=== PATIENT | female | born 1960 | race Caucasian/White ===

== ENCOUNTER 2016-10-17 18:38 | Emergency (ER) | payer OTHER ==
[~2016-10-17] VITALS: Ht 208.3 cm; Wt 88.0 kg
[~2016-10-17 18:38] MED LIST: ACETAMINOPHEN325 M1 PO; ALBUTEROL SULF8.5 GM INH; BENADRYL25 MG PO; BUTALB-ACETAMI1 EACH PO; BUTALBITAL-ASA1 EAC1 PO; CYCLOBENZAPRINE10 MG PO; DICLOFENAC POTA50 MG PO; EPIPEN 2-P0.3 MG/0.3 IM; GABAPENTIN300 MG PO; IBUPROFEN600 MG PO; INDERAL LA160 MG PO; IRON325 MG PO; LISINOPRIL20 MG PO; LOSARTAN POTASS25 MG PO; NORCO 5-325 TA1 EACH PO; PEPCID20 MG PO; PREDNISONE20 MG PO; PROPRANOLOL HCL40 MG PO; SOMA350 MG PO; SYNTHROID50 MCG PO; TRAZODONE HCL100 MG PO; VITAMIN D5000 UNIT PO
[2016-11-11] MEDS ORDERED: DICLOFENAC SODI75 MG PO (00:03)
== END 2016-10-17 20:08 | disposition home or self-care (01) ==
LOC: ED 18:38
DX: E87.1 Hypo-osmolality and hyponatremia (principal); I10 Essential (primary) hypertension; E03.9 Hypothyroidism, unspecified; F17.200 Nicotine dependence, unspecified, uncomplicated; Z90.49 Acquired absence of other specified parts of digestive tract; Z90.710 Acquired absence of both cervix and uterus; Z79.899 Other long term (current) drug therapy; Z88.5 Allergy status to narcotic agent; Z88.8 Allergy status to other drugs, medicaments and biological substances
CPT/HCPCS: 82570; 84300; 99283

== ENCOUNTER → 2016-11-10 | Emergency (ER) | payer OTHER ==
[~2016-11-10] VITALS: Ht 165.1 cm; Wt 101.2 kg
[~2016-11-10] MED LIST changes: +CARVEDILOL12.5 MG PO; +DICLOFENAC SODI75 MG PO; +FERROUS SULFAT325 MG PO; +SPIRONOLACTONE25 MG PO
== END ==
LOC: ED 22:54
DX: S90.31XA Contusion of right foot, initial encounter (principal); I10 Essential (primary) hypertension; E03.9 Hypothyroidism, unspecified; F17.200 Nicotine dependence, unspecified, uncomplicated; Z90.49 Acquired absence of other specified parts of digestive tract; Z98.84 Bariatric surgery status; Z90.710 Acquired absence of both cervix and uterus; Z88.6 Allergy status to analgesic agent; Z88.5 Allergy status to narcotic agent; Z79.899 Other long term (current) drug therapy; W22.8XXA Striking against or struck by other objects, initial encounter
CPT/HCPCS: 73630; 99283

== ENCOUNTER 2017-02-14 22:02 | Emergency (ER) | payer OTHER ==
[~2017-02-14] VITALS: Ht 157.5 cm; Wt 106.1 kg
--- OUTSIDE RECORDS SUMMARY | ~2017-02-14 | XMS ---
Demographics + + + | Address | [address] | | | [address] | | | [place] [address] | + + + | Preferred Language | Unknown | + + + | Marital Status | Unknown | + + + | Taoist Affiliation | Unknown | + + + | Race | Unknown | + + + | Ethnic Group | Unknown | + + + Author + + + | Author | [facility] | + + + | Organization | [facility] | + + + | Address | [address] | | | [place] [address] | + + + | Phone | | + + + Care Team Providers + + + + | Care Life Underwriter Name | Role | Phone | + + + + Unavailable | Unavailable | + + + + PROBLEMS +---------+ + + +--------+ + + | Type | Condition | ICD9-CM | [id number] | Onset | Condition | SNOMED | | | | Code | Code | Dates | Status | Code | +---------+ + + +--------+ + + | Problem | Hypoglycem | E16.1 | | | Active | 218726 | | | ic | | | | | | | | reaction | | | | | | +---------+ + + +--------+ + + | Problem | Pain in | | M54.6 | | Active | 749786426 | | | thoracic | | | | | | | | spine | | | | | | +---------+ + + +--------+ + + | Problem | Low back | | M54.5 | | Active | 569589192 | | | pain | | | | | | +---------+ + + +--------+ + + | Problem | Hypoglycem | E16.2 | | | Active | 018017006 | | | ia | | | | | | +---------+ + + +--------+ + + | Problem | Low sodium | | E87.1 | | Active | 346713811 | | | levels | | | | | | +---------+ + + +--------+ + + | Problem | Left wrist | S69.92XA | | | Active | | | | injury | | | | | | +---------+ + + +--------+ + + | Problem | Contusion | | S90.32XD | | Active | 6977901570 | | | of left | | | | | 9164955 | | | foot, | | | | | | | | subsequent | | | | | | | | encounter | | | | | | +---------+ + + +--------+ + + | Problem | Left wrist | | M25.532 | | Active | 24564660 | | | pain | | | | | | +---------+ + + +--------+ + + | Problem | Carpal | | G56.02 | | Active | 8411739268 | | | tunnel | | | | | [address] | | | syndrome | | | | | | | | of left | | | | | | | | wrist | | | | | | +---------+ + + +--------+ + + | Problem | Lumbago | | M54.5 | | Active | 319342899 | +---------+ + + +--------+ + + | Problem | Insomnia | | G47.00 | | Active | 518502473 | +---------+ + + +--------+ + + | Problem | Migraines | | G43.909 | | Active | 50715122 | +---------+ + + +--------+ + + | Problem | Hypothyroi | | E03.9 | | Active | 02001164 | | | dism | | | | | | +---------+ + + +--------+ + + | Problem | Hypertensi | | I10 | | Active | 14715371 | | | on | | | | | | +---------+ + + +--------+ + + | Problem | H/O | Z87.898 | | | Active | | | | wheezing | | | | | | +---------+ + + +--------+ + + | Problem | Hyperchole | | E78.0 | | Active | 590962838 | | | steremia | | | | | | +---------+ + + +--------+ + + ALLERGIES Unknown Allergies SOCIAL HISTORY No smoking Hx information available PLAN OF CARE VITAL SIGNS MEDICATIONS Unknown Medications RESULTS No Results PROCEDURES No Known procedures IMMUNIZATIONS No Known Immunizations"
--- OUTSIDE RECORDS SUMMARY | ~2017-02-14 | XMS ---
Demographics + + + | Address | [address] | | | [address] | | | [place] [address] | + + + | Preferred Language | Unknown | + + + | Marital Status | Unknown | + + + | Jewish Affiliation | Unknown | + + + | Race | Unknown | + + + | Ethnic Group | Unknown | + + + Author + + + | Author | [facility] | + + + | Organization | [facility] | + + + | Address | [address] | | | [place] [address] | + + + | Phone | | + + + Care Team Providers + + + + | Care Clinical Recruiter Name | Role | Phone | + + + + Unavailable | Unavailable | + + + + PROBLEMS +---------+ + + +--------+ + + | Type | Condition | ICD9-CM | [id number] | Onset | Condition | SNOMED | | | | Code | Code | Dates | Status | Code | +---------+ + + +--------+ + + | Problem | Hypoglycem | E16.1 | | | Active | 896410 | | | ic | | | | | | | | reaction | | | | | | +---------+ + + +--------+ + + | Problem | Pain in | | M54.6 | | Active | 161550983 | | | thoracic | | | | | | | | spine | | | | | | +---------+ + + +--------+ + + | Problem | Low back | | M54.5 | | Active | 568386027 | | | pain | | | | | | +---------+ + + +--------+ + + | Problem | Hypoglycem | E16.2 | | | Active | 682182664 | | | ia | | | | | | +---------+ + + +--------+ + + | Problem | Low sodium | | E87.1 | | Active | 482280187 | | | levels | | | | | | +---------+ + + +--------+ + + | Problem | Left wrist | S69.92XA | | | Active | | | | injury | | | | | | +---------+ + + +--------+ + + | Problem | Contusion | | S90.32XD | | Active | 7301950697 | | | of left | | | | | 5470363 | | | foot, | | | | | | | | subsequent | | | | | | | | encounter | | | | | | +---------+ + + +--------+ + + | Problem | Left wrist | | M25.532 | | Active | 04333295 | | | pain | | | | | | +---------+ + + +--------+ + + | Problem | Carpal | | G56.02 | | Active | 3629377320 | | | tunnel | | | | | [address] | | | syndrome | | | | | | | | of left | | | | | | | | wrist | | | | | | +---------+ + + +--------+ + + | Problem | Lumbago | | M54.5 | | Active | 645723472 | +---------+ + + +--------+ + + | Problem | Insomnia | | G47.00 | | Active | 281265250 | +---------+ + + +--------+ + + | Problem | Migraines | | G43.909 | | Active | 36278080 | +---------+ + + +--------+ + + | Problem | Hypothyroi | | E03.9 | | Active | 38931567 | | | dism | | | | | | +---------+ + + +--------+ + + | Problem | Hypertensi | | I10 | | Active | 49247015 | | | on | | | | | | +---------+ + + +--------+ + + | Problem | H/O | Z87.898 | | | Active | | | | wheezing | | | | | | +---------+ + + +--------+ + + | Problem | Hyperchole | | E78.0 | | Active | 000870267 | | | steremia | | | | | | +---------+ + + +--------+ + + ALLERGIES Unknown Allergies SOCIAL HISTORY No smoking Hx information available PLAN OF CARE VITAL SIGNS MEDICATIONS Unknown Medications RESULTS No Results PROCEDURES No Known procedures IMMUNIZATIONS No Known Immunizations"
--- OUTSIDE RECORDS SUMMARY | ~2017-02-14 | XMS ---
Demographics + + + | Address | [address] | | | [place] [address] | + + + | Preferred Language | Unknown | + + + | Marital Status | Unknown | + + + | Baptism Affiliation | Unknown | + + + | Race | Unknown | + + + | Ethnic Group | Unknown | + + + Author + + + | Author | [facility] | + + + | Organization | [facility] | + + + | Address | [address] | | | [place] [address] | + + + | Phone | | + + + Care Team Providers + + + + | Care Cannon Crewmember Name | Role | Phone | + + + + Unavailable | Unavailable | + + + + PROBLEMS +---------+ + + +--------+ + + | Type | Condition | ICD9-CM | [id number] | Onset | Condition | SNOMED | | | | Code | Code | Dates | Status | Code | +---------+ + + +--------+ + + | Problem | Anemia | | D64.9 | | Active | 968996343 | +---------+ + + +--------+ + + | Problem | Hypothyroi | | E03.9 | | Active | 44458901 | | | dism | | | | | | +---------+ + + +--------+ + + | Problem | Lumbago | | M54.5 | | Active | 849052081 | +---------+ + + +--------+ + + | Problem | Hyponatrem | | E87.1 | | Active | 78343051 | | | ia | | | | | | +---------+ + + +--------+ + + | Problem | Hyperchole | | E78.0 | | Active | 148266131 | | | steremia | | | | | | +---------+ + + +--------+ + + | Problem | Insomnia | | G47.00 | | Active | 541236854 | +---------+ + + +--------+ + + | Problem | H/O | Z87.898 | | | Active | | | | wheezing | | | | | | +---------+ + + +--------+ + + | Problem | Hypertensi | | I10 | | Active | 66862991 | | | on | | | | | | +---------+ + + +--------+ + + | Problem | Migraines | | G43.909 | | Active | 48340938 | +---------+ + + +--------+ + + ALLERGIES Unknown Allergies SOCIAL HISTORY No smoking Hx information available PLAN OF CARE VITAL SIGNS MEDICATIONS Unknown Medications RESULTS No Results PROCEDURES No Known procedures IMMUNIZATIONS No Known Immunizations"
--- OUTSIDE RECORDS SUMMARY | ~2017-02-14 | XMS ---
Demographics + + + | Address | [address] | | | [place] [address] | + + + | Preferred Language | Unknown | + + + | Marital Status | Unknown | + + + | Mormonism Affiliation | Unknown | + + + | Race | Unknown | + + + | Ethnic Group | Unknown | + + + Author + + + | Author | [facility] | + + + | Organization | [facility] | + + + | Address | [address] | | | [place] [address] | + + + | Phone | | + + + Care Team Providers + + + + | Care Water Softener Installer Name | Role | Phone | + + + + Unavailable | Unavailable | + + + + PROBLEMS +---------+ + + +--------+ + + | Type | Condition | ICD9-CM | [id number] | Onset | Condition | SNOMED | | | | Code | Code | Dates | Status | Code | +---------+ + + +--------+ + + | Problem | Anemia | | D64.9 | | Active | 613497780 | +---------+ + + +--------+ + + | Problem | Hypothyroi | | E03.9 | | Active | 89634225 | | | dism | | | | | | +---------+ + + +--------+ + + | Problem | Lumbago | | M54.5 | | Active | 926345461 | +---------+ + + +--------+ + + | Problem | Hyponatrem | | E87.1 | | Active | 00009627 | | | ia | | | | | | +---------+ + + +--------+ + + | Problem | Hyperchole | | E78.0 | | Active | 687996794 | | | steremia | | | | | | +---------+ + + +--------+ + + | Problem | Insomnia | | G47.00 | | Active | 300462652 | +---------+ + + +--------+ + + | Problem | H/O | Z87.898 | | | Active | | | | wheezing | | | | | | +---------+ + + +--------+ + + | Problem | Hypertensi | | I10 | | Active | 31240171 | | | on | | | | | | +---------+ + + +--------+ + + | Problem | Migraines | | G43.909 | | Active | 36861360 | +---------+ + + +--------+ + + ALLERGIES No Information SOCIAL HISTORY Never Assessed PLAN OF CARE VITAL SIGNS MEDICATIONS Unknown Medications RESULTS No Results PROCEDURES No Known procedures IMMUNIZATIONS No Known Immunizations MEDICAL (GENERAL) HISTORY + + +---------+ | Type | Description | Date | + + +---------+ | Medical History | HTN | | + + +---------+ | Medical History | THYROID | | + + +---------+ | Medical History | SLEEP ISSUES | | + + +---------+ | Medical History | RA | | + + +---------+ | Medical History | MIGRAINES | | + + +---------+ | Medical History | VITAMIN D DEFICIENCY | | + + +---------+ | 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 | | + + +---------+ | Medical History | Allergic reaction to bee | | | | sting | | + + +---------+ | Medical History | Tailor's bunion of right | | | | foot | | + + +---------+ | Medical History | History of smoking | | + + +---------+ | Medical History | Cataract | | + + +---------+ | Medical History | Numbness | | + + +---------+ | Medical History | Carpal tunnel syndrome of | | | | left wrist | | + + +---------+ | Medical History | Contusion of left foot, | | | | subsequent encounter | | + + +---------+ | Medical History | Hypoglycemic reaction | | + + +---------+ | Medical History | Left wrist injury | | + + +---------+ | Medical History | Pain in thoracic spine | | + + +---------+ | Medical History | Headache | | + + +---------+ | Medical History | Low back pain | | + + +---------+ | Medical History | Left wrist pain | | + + +---------+ | Medical History | Hypoglycemia | | + + +---------+ | Surgical History | C-SECT X3 | | + + +---------+ | Surgical History | HERNIA | | + + +---------+ | Surgical History | PARTIAL HYSTERECTOMY | | + + +---------+ | Surgical History | R shoulder blade | | + + +---------+ | 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
--- OUTSIDE RECORDS SUMMARY | ~2017-02-14 | XMS ---
Demographics + + + | Address | [address] | | | [address] | | | [place] [address] | + + + | Preferred Language | Unknown | + + + | Marital Status | Unknown | + + + | Buddhist Affiliation | Unknown | + + + | Race | Unknown | + + + | Ethnic Group | Unknown | + + + Author + + + | Author | [facility] | + + + | Organization | [facility] | + + + | Address | [address] | | | [place] [address] | + + + | Phone | | + + + Care Team Providers + + + + | Care Skin Washer Name | Role | Phone | + + + + Unavailable | Unavailable | + + + + PROBLEMS +---------+ + + +--------+ + + | Type | Condition | ICD9-CM | [id number] | Onset | Condition | SNOMED | | | | Code | Code | Dates | Status | Code | +---------+ + + +--------+ + + | Problem | Hypoglycem | E16.1 | | | Active | 626073 | | | ic | | | | | | | | reaction | | | | | | +---------+ + + +--------+ + + | Problem | Pain in | | M54.6 | | Active | 647854184 | | | thoracic | | | | | | | | spine | | | | | | +---------+ + + +--------+ + + | Problem | Low back | | M54.5 | | Active | 779011180 | | | pain | | | | | | +---------+ + + +--------+ + + | Problem | Hypoglycem | E16.2 | | | Active | 368772431 | | | ia | | | | | | +---------+ + + +--------+ + + | Problem | Low sodium | | E87.1 | | Active | 505167690 | | | levels | | | | | | +---------+ + + +--------+ + + | Problem | Left wrist | S69.92XA | | | Active | | | | injury | | | | | | +---------+ + + +--------+ + + | Problem | Contusion | | S90.32XD | | Active | 4868890941 | | | of left | | | | | 0042533 | | | foot, | | | | | | | | subsequent | | | | | | | | encounter | | | | | | +---------+ + + +--------+ + + | Problem | Left wrist | | M25.532 | | Active | 68222370 | | | pain | | | | | | +---------+ + + +--------+ + + | Problem | Carpal | | G56.02 | | Active | 3357651716 | | | tunnel | | | | | [address] | | | syndrome | | | | | | | | of left | | | | | | | | wrist | | | | | | +---------+ + + +--------+ + + | Problem | Lumbago | | M54.5 | | Active | 548950764 | +---------+ + + +--------+ + + | Problem | Insomnia | | G47.00 | | Active | 735810885 | +---------+ + + +--------+ + + | Problem | Migraines | | G43.909 | | Active | 86336888 | +---------+ + + +--------+ + + | Problem | Hypothyroi | | E03.9 | | Active | 90803888 | | | dism | | | | | | +---------+ + + +--------+ + + | Problem | Hypertensi | | I10 | | Active | 09181184 | | | on | | | | | | +---------+ + + +--------+ + + | Problem | H/O | Z87.898 | | | Active | | | | wheezing | | | | | | +---------+ + + +--------+ + + | Problem | Hyperchole | | E78.0 | | Active | 473286939 | | | steremia | | | | | | +---------+ + + +--------+ + + ALLERGIES Unknown Allergies SOCIAL HISTORY No smoking Hx information available PLAN OF CARE VITAL SIGNS MEDICATIONS Unknown Medications RESULTS No Results PROCEDURES No Known procedures IMMUNIZATIONS No Known Immunizations"
--- OUTSIDE RECORDS SUMMARY | ~2017-02-14 | XMS ---
Demographics + + + | Address | [address] | | | [address] | | | [place] [address] | + + + | Preferred Language | Unknown | + + + | Marital Status | Unknown | + + + | Advent Affiliation | Unknown | + + + | Race | Unknown | + + + | Ethnic Group | Unknown | + + + Author + + + | Author | [facility] | + + + | Organization | [facility] | + + + | Address | [address] | | | [place] [address] | + + + | Phone | | + + + Care Team Providers + + + + | Care Fuel Cell Systems Engineer Name | Role | Phone | + + + + Unavailable | Unavailable | + + + + PROBLEMS +---------+ + + +--------+ + + | Type | Condition | ICD9-CM | [id number] | Onset | Condition | SNOMED | | | | Code | Code | Dates | Status | Code | +---------+ + + +--------+ + + | Problem | Hypoglycem | E16.1 | | | Active | 333522 | | | ic | | | | | | | | reaction | | | | | | +---------+ + + +--------+ + + | Problem | Pain in | | M54.6 | | Active | 488053438 | | | thoracic | | | | | | | | spine | | | | | | +---------+ + + +--------+ + + | Problem | Low back | | M54.5 | | Active | 413994461 | | | pain | | | | | | +---------+ + + +--------+ + + | Problem | Hypoglycem | E16.2 | | | Active | 391404798 | | | ia | | | | | | +---------+ + + +--------+ + + | Problem | Low sodium | | E87.1 | | Active | 810672882 | | | levels | | | | | | +---------+ + + +--------+ + + | Problem | Left wrist | S69.92XA | | | Active | | | | injury | | | | | | +---------+ + + +--------+ + + | Problem | Contusion | | S90.32XD | | Active | 2311338956 | | | of left | | | | | 9624515 | | | foot, | | | | | | | | subsequent | | | | | | | | encounter | | | | | | +---------+ + + +--------+ + + | Problem | Left wrist | | M25.532 | | Active | 51390157 | | | pain | | | | | | +---------+ + + +--------+ + + | Problem | Carpal | | G56.02 | | Active | 0892218608 | | | tunnel | | | | | [address] | | | syndrome | | | | | | | | of left | | | | | | | | wrist | | | | | | +---------+ + + +--------+ + + | Problem | Lumbago | | M54.5 | | Active | 978601754 | +---------+ + + +--------+ + + | Problem | Insomnia | | G47.00 | | Active | 579084128 | +---------+ + + +--------+ + + | Problem | Migraines | | G43.909 | | Active | 02727874 | +---------+ + + +--------+ + + | Problem | Hypothyroi | | E03.9 | | Active | 14946117 | | | dism | | | | | | +---------+ + + +--------+ + + | Problem | Hypertensi | | I10 | | Active | 19855334 | | | on | | | | | | +---------+ + + +--------+ + + | Problem | H/O | Z87.898 | | | Active | | | | wheezing | | | | | | +---------+ + + +--------+ + + | Problem | Hyperchole | | E78.0 | | Active | 179062975 | | | steremia | | | | | | +---------+ + + +--------+ + + ALLERGIES Unknown Allergies SOCIAL HISTORY No smoking Hx information available PLAN OF CARE + +---------+ | Activity | Details | + +---------+ +---+ | | +---+ + + + | Pending Test | TSH | + + + | Pending Test | Basic Metabolic Panel | + + + VITAL SIGNS MEDICATIONS Unknown Medications RESULTS No Results PROCEDURES No Known procedures IMMUNIZATIONS No Known Immunizations"
--- OUTSIDE RECORDS SUMMARY | ~2017-02-14 | XMS ---
Demographics + + + | Address | [address] | | | [address] | | | [place] [address] | + + + | Preferred Language | Unknown | + + + | Marital Status | Unknown | + + + | Pentecostalism Affiliation | Unknown | + + + | Race | Unknown | + + + | Ethnic Group | Unknown | + + + Author + + + | Author | [facility] | + + + | Organization | [facility] | + + + | Address | [address] | | | [place] [address] | + + + | Phone | | + + + Care Team Providers + + + + | Care Plug Shaper Hand Name | Role | Phone | + + + + Unavailable | Unavailable | + + + + PROBLEMS +---------+ + + +--------+ + + | Type | Condition | ICD9-CM | [id number] | Onset | Condition | SNOMED | | | | Code | Code | Dates | Status | Code | +---------+ + + +--------+ + + | Problem | Low back | | M54.5 | | Active | 394832004 | | | pain | | | | | | +---------+ + + +--------+ + + | Problem | Contusion | | S90.32XD | | Active | 3846397430 | | | of left | | | | | 6450924 | | | foot, | | | | | | | | subsequent | | | | | | | | encounter | | | | | | +---------+ + + +--------+ + + | Problem | Pain in | | M54.6 | | Active | 872206414 | | | thoracic | | | | | | | | spine | | | | | | +---------+ + + +--------+ + + | Problem | Hyponatrem | | E87.1 | | Active | 69764659 | | | ia | | | | | | +---------+ + + +--------+ + + | Problem | Hypoglycem | E16.2 | | | Active | 461434496 | | | ia | | | | | | +---------+ + + +--------+ + + | Problem | Carpal | | G56.02 | | Active | 7207565668 | | | tunnel | | | | | [address] | | | syndrome | | | [...] | | E87.1 | | Active | 923203256 | | | levels | | | | | | +---------+ + + +--------+ + + | Problem | Left wrist | | M25.532 | | Active | 84642024 | | | pain | | | | | | +---------+ + + +--------+ + + | Problem | Lumbago | | M54.5 | | Active | 045690367 | +---------+ + + +--------+ + + | Problem | Hypothyroi | | E03.9 | | Active | 02467566 | | | dism | | | | | | +---------+ + + +--------+ + + | Problem | Migraines | | G43.909 | | Active | 72635937 | +---------+ + + +--------+ + + | Problem | Hypertensi | | I10 | | Active | 47310345 | | | on | | | | | | +---------+ + + +--------+ + + | Problem | H/O | Z87.898 | | | Active | | | | wheezing | | | | | | +---------+ + + +--------+ + + | Problem | Hyperchole | | E78.0 | | Active | 662447173 | | | steremia | | | | | | +---------+ + + +--------+ + + | Problem | Insomnia | | G47.00 | | Active | 706085557 | +---------+ + + +--------+ + + | Problem | Hypoglycem | E16.1 | | | Active | 703379 | | | ic | | | | | | | | reaction | | | | | | +---------+ + + +--------+ + + ALLERGIES + + + + +--------+ | Substance | Reaction | Event Type | Date | Status | + + + + +--------+ | Toradol | drops blood | Non Drug | Aug, | Active | | | sugar | Allergy | | | + + + + +--------+ | CODEINE | back pain | Non Drug | Aug, | Active | | | | Allergy | | | + + + + +--------+ | ASPIRIN | anaphylaxis | Non Drug | Aug, | Active | | | | Allergy | | | + + + + +--------+ SOCIAL HISTORY No smoking Hx information available PLAN OF CARE + +---------+ | Activity | Details | + +---------+ +---+ | | +---+ + + + | Follow Up | as scheduled with PCP and pending x ray | | | results Reason:null | + + + | Pending Test | X ray : Foot AP/L/O (3+ views)- RT | + + + VITAL SIGNS + + + + | Height | 62 in | 2016-09-23 | + + + + | Weight | 221.6 lbs | 2016-09-23 | + + + + | BMI | 40.53 kg/m2 | 2016-09-23 | + + + + | Temperature | 97.9 degrees Fahrenheit | 2016-09-23 | + + + + | Heart Rate | 81 /min | 2016-09-23 | + + + + | Blood pressure systolic | 120 mm Hg | 2016-09-23 | + + + + | Blood pressure diastolic | 69 mm Hg | 2016-09-23 | + + + + MEDICATIONS + [...] | Orally | 1-3 | | 07 Dec, | | 90 days | Active | | in 300 | tid prn | tablets | | 2015 | | | | | MG | | as | | | | | | | | | directed | | | | | | + + + + + + + +--------+ | Losartan | | take 1 | | 08 Jul, | | 30 | Active | | | | tablet | | 2016 | | | | | Potassiu | [...] + + + + + +--------+ | Fioricet | Orally 1 | 1 tablet | | | 22 Nov, | 30 | Active | | | tab qid | as | | | 2017 | day(s) | | | 50-325-4 | | needed | | | | | | | 0 MG | | | | | | [...] + + + +--------+ | Chlortha | | take 1 | | | | 30 | Active | | lidone | | tablet | | | | | | | 25 MG | | by mouth | | | | | | | | | every | | | | | | | | | morning | | | | | [...] + + + + | Est Level II | September 23, 2016 | | | | Limited | | | | + + + + + IMMUNIZATIONS No Known Immunizations"
--- OUTSIDE RECORDS SUMMARY | ~2017-02-14 | XMS ---
Demographics + + + | Address | [facility] [address] | | | [address] | | | [place] [address] | + + + | Preferred Language | Unknown | + + + | Marital Status | Unknown | + + + | Zoroastrianism Affiliation | Unknown | + + + | Race | Unknown | + + + | Ethnic Group | Unknown | + + + Author + + + | Author | [facility] | + + + | Organization | [facility] | + + + | Address | [address] | | | [place] [address] | + + + | Phone | | + + + Care Team Providers + + + + | Care Supervisor Advertising Dispatch Clerks Name | Role | Phone | + + + + Unavailable | Unavailable | + + + + PROBLEMS +---------+ + + +--------+ + + | Type | Condition | ICD9-CM | [id number] | Onset | Condition | SNOMED | | | | Code | Code | Dates | Status | Code | +---------+ + + +--------+ + + | Problem | Low back | | M54.5 | | Active | [id number] | | | pain | | | | | | +---------+ + + +--------+ + + | Problem | Contusion | | S90.32XD | | Active | [id number] | | | of left | | | | | 6260659 | | | foot, | | | | | | | | subsequent | | | | | | | | encounter | | | | | | +---------+ + + +--------+ + + | Problem | Pain in | | M54.6 | | Active | 992885969 | | | thoracic | | | | | | | | spine | | | | | | +---------+ + + +--------+ + + | Problem | Hyponatrem | | E87.1 | | Active | 06634126 | | | ia | | | | | | +---------+ + + +--------+ + + | Problem | Hypoglycem | E16.2 | | | Active | 659492339 | | | ia | | | | | | +---------+ + + +--------+ + + | Problem | Carpal | | G56.02 | | Active | 7210699678 | | | tunnel | | | | | [address] | | | syndrome | | | [...] | | E87.1 | | Active | 757130820 | | | levels | | | | | | +---------+ + + +--------+ + + | Problem | Left wrist | | M25.532 | | Active | 78551593 | | | pain | | | | | | +---------+ + + +--------+ + + | Problem | Lumbago | | M54.5 | | Active | 914535072 | +---------+ + + +--------+ + + | Problem | Hypothyroi | | E03.9 | | Active | 03850092 | | | dism | | | | | | +---------+ + + +--------+ + + | Problem | Migraines | | G43.909 | | Active | 12272850 | +---------+ + + +--------+ + + | Problem | Hypertensi | | I10 | | Active | 16784719 | | | on | | | | | | +---------+ + + +--------+ + + | Problem | H/O | Z87.898 | | | Active | | | | wheezing | | | | | | +---------+ + + +--------+ + + | Problem | Hyperchole | | E78.0 | | Active | 176132589 | | | steremia | | | | | | +---------+ + + +--------+ + + | Problem | Insomnia | | G47.00 | | Active | 947870597 | +---------+ + + +--------+ + + | Problem | Hypoglycem | E16.1 | | | Active | 807185 | | | ic | | | | | | | | reaction | | | | | | +---------+ + + +--------+ + + ALLERGIES Unknown Allergies SOCIAL HISTORY No smoking Hx information available PLAN OF CARE VITAL SIGNS MEDICATIONS Unknown Medications RESULTS No Results PROCEDURES No Known procedures IMMUNIZATIONS No Known Immunizations"
--- OUTSIDE RECORDS SUMMARY | ~2017-02-14 | XMS ---
Demographics + + + | Address | [facility] [address] | | | [address] | | | [place] [address] | + + + | Preferred Language | Unknown | + + + | Marital Status | Unknown | + + + | Shinto Affiliation | Unknown | + + + | Race | Unknown | + + + | Ethnic Group | Unknown | + + + Author + + + | Author | [facility] | + + + | Organization | [facility] | + + + | Address | [address] | | | [place] [address] | + + + | Phone | | + + + Care Team Providers + + + + | Care Role Player Name | Role | Phone | + + + + Unavailable | Unavailable | + + + + PROBLEMS +---------+ + + +--------+ + + | Type | Condition | ICD9-CM | [id number] | Onset | Condition | SNOMED | | | | Code | Code | Dates | Status | Code | +---------+ + + +--------+ + + | Problem | Hypoglycem | E16.1 | | | Active | 117599 | | | ic | | | | | | | | reaction | | | | | | +---------+ + + +--------+ + + | Problem | Pain in | | M54.6 | | Active | 808045162 | | | thoracic | | | | | | | | spine | | | | | | +---------+ + + +--------+ + + | Problem | Low back | | M54.5 | | Active | 425926207 | | | pain | | | | | | +---------+ + + +--------+ + + | Problem | Hypoglycem | E16.2 | | | Active | 384871271 | | | ia | | | | | | +---------+ + + +--------+ + + | Problem | Low sodium | | E87.1 | | Active | 159538950 | | | levels | | | | | | +---------+ + + +--------+ + + | Problem | Left wrist | S69.92XA | | | Active | | | | injury | | | | | | +---------+ + + +--------+ + + | Problem | Contusion | | S90.32XD | | Active | 3112543994 | | | of left | | | | | 9973046 | | | foot, | | | | | | | | subsequent | | | | | | | | encounter | | | | | | +---------+ + + +--------+ + + | Problem | Left wrist | | M25.532 | | Active | 28051784 | | | pain | | | | | | +---------+ + + +--------+ + + | Problem | Carpal | | G56.02 | | Active | 7571287821 | | | tunnel | | | | | [address] | | | syndrome | | | | | | | | of left | | | | | | | | wrist | | | | | | +---------+ + + +--------+ + + | Problem | Lumbago | | M54.5 | | Active | 683236834 | +---------+ + + +--------+ + + | Problem | Insomnia | | G47.00 | | Active | 335558966 | +---------+ + + +--------+ + + | Problem | Migraines | | G43.909 | | Active | 96604506 | +---------+ + + +--------+ + + | Problem | Hypothyroi | | E03.9 | | Active | 96898905 | | | dism | | | | | | +---------+ + + +--------+ + + | Problem | Hypertensi | | I10 | | Active | 86585932 | | | on | | | | | | +---------+ + + +--------+ + + | Problem | H/O | Z87.898 | | | Active | | | | wheezing | | | | | | +---------+ + + +--------+ + + | Problem | Hyperchole | | E78.0 | | Active | 425844596 | | | steremia | | | | | | +---------+ + + +--------+ + + ALLERGIES Unknown Allergies SOCIAL HISTORY No smoking Hx information available PLAN OF CARE VITAL SIGNS MEDICATIONS Unknown Medications RESULTS No Results PROCEDURES No Known procedures IMMUNIZATIONS No Known Immunizations"
--- OUTSIDE RECORDS SUMMARY | ~2017-02-14 | XMS ---
Demographics + + + | Address | [address] | | | [place] [address] | + + + | Preferred Language | Unknown | + + + | Marital Status | Unknown | + + + | Mandaen Affiliation | Unknown | + + + | Race | Unknown | + + + | Ethnic Group | Unknown | + + + Author + + + | Author | [facility] | + + + | Organization | [facility] | + + + | Address | [address] | | | [place] [address] | + + + | Phone | | + + + Care Team Providers + + + + | Care Middle Card Tender Name | Role | Phone | + + + + Unavailable | Unavailable | + + + + PROBLEMS +---------+ + + +--------+ + + | Type | Condition | ICD9-CM | [id number] | Onset | Condition | SNOMED | | | | Code | Code | Dates | Status | Code | +---------+ + + +--------+ + + | Problem | Anemia | | D64.9 | | Active | 980612224 | +---------+ + + +--------+ + + | Problem | Hypothyroi | | E03.9 | | Active | 44778374 | | | dism | | | | | | +---------+ + + +--------+ + + | Problem | Lumbago | | M54.5 | | Active | 151205513 | +---------+ + + +--------+ + + | Problem | Hyponatrem | | E87.1 | | Active | 57627147 | | | ia | | | | | | +---------+ + + +--------+ + + | Problem | Hyperchole | | E78.0 | | Active | 232581389 | | | steremia | | | | | | +---------+ + + +--------+ + + | Problem | Insomnia | | G47.00 | | Active | 861265051 | +---------+ + + +--------+ + + | Problem | H/O | Z87.898 | | | Active | | | | wheezing | | | | | | +---------+ + + +--------+ + + | Problem | Hypertensi | | I10 | | Active | 62584548 | | | on | | | | | | +---------+ + + +--------+ + + | Problem | Migraines | | G43.909 | | Active | 66060687 | +---------+ + + +--------+ + + ALLERGIES No Information SOCIAL HISTORY Never Assessed PLAN OF CARE VITAL SIGNS MEDICATIONS + + + + + + + +--------+ | Medicati | Instruct | Dosage | Frequenc | Start | End Date | Duration | Status | | on | ions | | y | Date | | | | + + + + + + + +--------+ | Losartan | Orally | take 1 | 24h | Jul, | | 30 | Active | | | Once a | tablet | | 2016 | | | | | Potassiu | day | by mouth | | | | | | | m 50 mg | | once | | | | | | | | | daily | | | | | | + + + + + + + +--------+ RESULTS No Results PROCEDURES No Known procedures [...]
--- OUTSIDE RECORDS SUMMARY | ~2017-02-14 | XMS ---
Demographics + + + | Address | [address] | | | [place] [address] | + + + | Preferred Language | Unknown | + + + | Marital Status | Unknown | + + + | Anglican Affiliation | Unknown | + + + | Race | Unknown | + + + | Ethnic Group | Unknown | + + + Author + + + | Author | [facility] | + + + | Organization | [facility] | + + + | Address | [address] | | | [place] [address] | + + + | Phone | | + + + Care Team Providers + + + + | Care Occ Therapist Name | Role | Phone | + + + + Unavailable | Unavailable | + + + + PROBLEMS +---------+ + + +--------+ + + | Type | Condition | ICD9-CM | [id number] | Onset | Condition | SNOMED | | | | Code | Code | Dates | Status | Code | +---------+ + + +--------+ + + | Problem | Pain in | | M54.6 | | Active | 693847789 | | | thoracic | | | [...] | | S90.32XD | | Active | 7950409298 | | | of left | | | | | 4848500 | | | foot, | | | | | | | | subsequent | | | | | | | | encounter | | | | | | +---------+ + + +--------+ + + | Problem | Headache | | R51 | | Active | 24696462 | +---------+ + + +--------+ + + | Problem | Hyponatrem | | E87.1 | | Active | 14411855 | | | ia | | | | | | +---------+ + + +--------+ + + | Problem | Left wrist | | M25.532 | | Active | 91398878 | | | pain | | | | | | +---------+ + + +--------+ + + | Problem | Carpal | | G56.02 | | Active | 0515555121 | | | tunnel | | | | | [address] | | | syndrome | | | | | | | | of left | | | | | | | | wrist | | | | | | +---------+ + + +--------+ + + | Problem | Hypoglycem | E16.2 | | | Active | 694311743 | | | ia | | | | | | +---------+ + + +--------+ + + | Problem | Low sodium | | E87.1 | | Active | 913380930 | | | levels | | | | | | +---------+ + + +--------+ + + | Problem | Hypothyroi | | E03.9 | | Active | 74866946 | | | dism | | | | | | +---------+ + + +--------+ + + | Problem | H/O | Z87.898 | | | Active | | | | wheezing | | | | | | +---------+ + + +--------+ + + | Problem | Lumbago | | M54.5 | | Active | 975180925 | +---------+ + + +--------+ + + | Problem | Hypertensi | | I10 | | Active | 41967016 | | | on | | | | | | +---------+ + + +--------+ + + | Problem | Hyperchole | | E78.0 | | Active | 287322715 | | | steremia | | | | | | +---------+ + + +--------+ + + | Problem | Insomnia | | G47.00 | | Active | 300601982 | +---------+ + + +--------+ + + | Problem | Hypoglycem | E16.1 | | | Active | 264533 | | | ic | | | | | | | | reaction | | | | | | +---------+ + + +--------+ + + | Problem | Migraines | | G43.909 | | Active | 00167920 | +---------+ + + +--------+ + + | Problem | Low back | | M54.5 | | Active | 677246665 | | | pain | | | | | | +---------+ + + +--------+ + + ALLERGIES + + + + +--------+ | Substance | Reaction | Event Type | Date | Status | + + + + +--------+ | bee stings | Unknown | Non Drug | Sep, | Active | | | | Allergy | | | + + + + +--------+ | Toradol | drops blood | Non Drug | Sep, | Active | | | sugar | Allergy | | | + + + + +--------+ | CODEINE | back pain | Non Drug | Sep, | Active | | | | Allergy | | | + + + + +--------+ | ASPIRIN | anaphylaxis | Non Drug | Sep, | Active | | | | Allergy | | | + + + + +--------+ SOCIAL HISTORY No smoking Hx information available PLAN OF CARE + +---------+ | Activity | Details | + +---------+ +---+ | | +---+ + + + | Follow Up | 1 Week Reason:null | + + + | Pending Test | Osmolality, Serum | + + + | Pending Test | TSH+Free T4 | + + + | Pending Test | Comp. Metabolic Panel (14) | + + + | Pending Test | Osmolality Urine | + + + | Pending Test | cbc | + + + VITAL SIGNS + + + + | Height | 62 in | 2016-10-17 | + + + + | Weight | 223.2 lbs | 2016-10-17 | + + + + | BMI | 40.82 kg/m2 | 2016-10-17 | + + + + | Temperature | 97.1 degrees Fahrenheit | 2016-10-17 | + + + + | Heart Rate | 95 /min | 2016-10-17 | + + + + | Blood pressure systolic | 143 mm Hg | 2016-10-17 | + + + + | Blood pressure diastolic | 97 mm Hg | 2016-10-17 | + + + + MEDICATIONS + [...] | Orally | 1 | 24h | 21 Sep, | | 30 | Active | | lol HCl | Once a | capsule | | 2016 | | | | | ER 160 [...] | + + + + + | INJ KETOROLAC | Oct 17, 2016 | | | | TROMETHAMINE 15 MG | | | | + + + + + | INJECTION | Oct 17, 2016 | | | | ADMINISTRATION | | | | + + + + + | Est Level IV | Oct 17, 2016 | | | | Extended | | | | + + + + + IMMUNIZATIONS + + + + + | Vaccine | Route | Administration Date | Status | + + + + + | Ketorolac 30mg | IM Intramuscular | Oct 17, 2016 | Administered | + + + + +"
--- OUTSIDE RECORDS SUMMARY | ~2017-02-14 | XMS ---
Demographics + + + | Address | [address] | | | [place] [address] | + + + | Preferred Language | Unknown | + + + | Marital Status | Unknown | + + + | Yazidi Affiliation | Unknown | + + + | Race | Unknown | + + + | Ethnic Group | Unknown | + + + Author + + + | Author | [facility] | + + + | Organization | [facility] | + + + | Address | [address] | | | [place] [address] | + + + | Phone | | + + + Care Team Providers + + + + | Care Scrap Bunch Maker Name | Role | Phone | + + + + Unavailable | Unavailable | + + + + PROBLEMS +---------+ + + +--------+ + + | Type | Condition | ICD9-CM | [id number] | Onset | Condition | SNOMED | | | | Code | Code | Dates | Status | Code | +---------+ + + +--------+ + + | Problem | Anemia | | D64.9 | | Active | 168829921 | +---------+ + + +--------+ + + | Problem | Hypothyroi | | E03.9 | | Active | 67851676 | | | dism | | | | | | +---------+ + + +--------+ + + | Problem | Lumbago | | M54.5 | | Active | 478433220 | +---------+ + + +--------+ + + | Problem | Hyponatrem | | E87.1 | | Active | 94674234 | | | ia | | | | | | +---------+ + + +--------+ + + | Problem | Hyperchole | | E78.0 | | Active | 879377296 | | | steremia | | | | | | +---------+ + + +--------+ + + | Problem | Insomnia | | G47.00 | | Active | 064357825 | +---------+ + + +--------+ + + | Problem | H/O | Z87.898 | | | Active | | | | wheezing | | | | | | +---------+ + + +--------+ + + | Problem | Hypertensi | | I10 | | Active | 71893072 | | | on | | | | | | +---------+ + + +--------+ + + | Problem | Migraines | | G43.909 | | Active | 32383624 | +---------+ + + +--------+ + + [...] Diclofen | Orally | 1 tablet | 12h | 19 Sep, | 4 Oct, | 15 | Active | | ac | Twice a | with | | 2017 | 2017 | day(s) | | | Sodium | day | food or | | | | | | | 75 mg | | milk | | | | | [...]
--- OUTSIDE RECORDS SUMMARY | ~2017-02-14 | XMS ---
Demographics + + + | Address | [facility] [address] | | | [address] | | | [place] [address] | + + + | Preferred Language | Unknown | + + + | Marital Status | Unknown | + + + | Christianity Affiliation | Unknown | + + + | Race | Unknown | + + + | Ethnic Group | Unknown | + + + Author + + + | Author | [facility] | + + + | Organization | [facility] | + + + | Address | [address] | | | [place] [address] | + + + | Phone | | + + + Care Team Providers + + + + | Care Search Specialist Name | Role | Phone | + + + + Unavailable | Unavailable | + + + + PROBLEMS +---------+ + + +--------+ + + | Type | Condition | ICD9-CM | [id number] | Onset | Condition | SNOMED | | | | Code | Code | Dates | Status | Code | +---------+ + + +--------+ + + | Problem | Low back | | M54.5 | | Active | 439894874 | | | pain | | | | | | +---------+ + + +--------+ + + | Problem | Contusion | | S90.32XD | | Active | 1776015908 | | | of left | | | | | 1704306 | | | foot, | | | | | | | | subsequent | | | | | | | | encounter | | | | | | +---------+ + + +--------+ + + | Problem | Pain in | | M54.6 | | Active | 443822684 | | | thoracic | | | | | | | | spine | | | | | | +---------+ + + +--------+ + + | Problem | Hyponatrem | | E87.1 | | Active | 97911263 | | | ia | | | | | | +---------+ + + +--------+ + + | Problem | Hypoglycem | E16.2 | | | Active | 451405708 | | | ia | | | | | | +---------+ + + +--------+ + + | Problem | Carpal | | G56.02 | | Active | 7106950859 | | | tunnel | | | | | [address] | | | syndrome | | | [...] | | E87.1 | | Active | 595216774 | | | levels | | | | | | +---------+ + + +--------+ + + | Problem | Left wrist | | M25.532 | | Active | 41405630 | | | pain | | | | | | +---------+ + + +--------+ + + | Problem | Lumbago | | M54.5 | | Active | 736580890 | +---------+ + + +--------+ + + | Problem | Hypothyroi | | E03.9 | | Active | 49970347 | | | dism | | | | | | +---------+ + + +--------+ + + | Problem | Migraines | | G43.909 | | Active | 26831847 | +---------+ + + +--------+ + + | Problem | Hypertensi | | I10 | | Active | 20962568 | | | on | | | | | | +---------+ + + +--------+ + + | Problem | H/O | Z87.898 | | | Active | | | | wheezing | | | | | | +---------+ + + +--------+ + + | Problem | Hyperchole | | E78.0 | | Active | 514574056 | | | steremia | | | | | | +---------+ + + +--------+ + + | Problem | Insomnia | | G47.00 | | Active | 162554236 | +---------+ + + +--------+ + + | Problem | Hypoglycem | E16.1 | | | Active | 705539 | | | ic | | | [...] + + + | Follow Up | 2 Weeks, prn Reason:null | + + + | Pending Test | Basic Metabolic Panel | + + + VITAL SIGNS + + + + | Height | 62 in | 2016-09-16 | + + + + | Weight | 226.2 lbs | 2016-09-16 | + + + + | BMI | 41.37 kg/m2 | 2016-09-16 | + + + + | Temperature | 98.0 degrees Fahrenheit | 2016-09-16 | + + + + | Heart Rate | 85 /min | 2016-09-16 | + + + + | Blood pressure systolic | 153 mm Hg | 2016-09-16 | + + + + | Blood pressure diastolic | 99 mm Hg | 2016-09-16 | + + + + MEDICATIONS + [...] tab qid | as | | | 2016 | day(s) | | | 50-325-4 | [...]
--- OUTSIDE RECORDS SUMMARY | ~2017-02-14 | XMS ---
Demographics + + + | Address | [address] | | | [address] | | | [place] [address] | + + + | Preferred Language | Unknown | + + + | Marital Status | Unknown | + + + | Restorationist Affiliation | Unknown | + + + | Race | Unknown | + + + | Ethnic Group | Unknown | + + + Author + + + | Author | [facility] | + + + | Organization | [facility] | + + + | Address | [address] | | | [place] [address] | + + + | Phone | | + + + Care Team Providers + + + + | Care Methods And Procedures Analyst Name | Role | Phone | + + + + Unavailable | Unavailable | + + + + PROBLEMS +---------+ + + +--------+ + + | Type | Condition | ICD9-CM | PHJ30-[id number] | Onset | Condition | SNOMED | | | | Code | Code | Dates | Status | Code | +---------+ + + +--------+ + + | Problem | Hypoglycem | E16.1 | | | Active | 573772 | | | ic | | | | | | | | reaction | | | | | | +---------+ + + +--------+ + + | Problem | Pain in | | M54.6 | | Active | 841028567 | | | thoracic | | | | | | | | spine | | | | | | +---------+ + + +--------+ + + | Problem | Low back | | M54.5 | | Active | 041125847 | | | pain | | | | | | +---------+ + + +--------+ + + | Problem | Hypoglycem | E16.2 | | | Active | 051770609 | | | ia | | | | | | +---------+ + + +--------+ + + | Problem | Low sodium | | E87.1 | | Active | 778323083 | | | levels | | | | | | +---------+ + + +--------+ + + | Problem | Left wrist | S69.92XA | | | Active | | | | injury | | | | | | +---------+ + + +--------+ + + | Problem | Contusion | | S90.32XD | | Active | 5210354376 | | | of left | | | | | 8900784 | | | foot, | | | | | | | | subsequent | | | | | | | | encounter | | | | | | +---------+ + + +--------+ + + | Problem | Left wrist | | M25.532 | | Active | 17922626 | | | pain | | | | | | +---------+ + + +--------+ + + | Problem | Carpal | | G56.02 | | Active | 7827947700 | | | tunnel | | | | | [address] | | | syndrome | | | | | | | | of left | | | | | | | | wrist | | | | | | +---------+ + + +--------+ + + | Problem | Lumbago | | M54.5 | | Active | 173109484 | +---------+ + + +--------+ + + | Problem | Insomnia | | G47.00 | | Active | 630531399 | +---------+ + + +--------+ + + | Problem | Migraines | | G43.909 | | Active | 21162548 | +---------+ + + +--------+ + + | Problem | Hypothyroi | | E03.9 | | Active | 32830337 | | | dism | | | | | | +---------+ + + +--------+ + + | Problem | Hypertensi | | I10 | | Active | 61550014 | | | on | | | | | | +---------+ + + +--------+ + + | Problem | H/O | Z87.898 | | | Active | | | | wheezing | | | | | | +---------+ + + +--------+ + + | Problem | Hyperchole | | E78.0 | | Active | 097094971 | | | steremia | | | | | | +---------+ + + +--------+ + + ALLERGIES Unknown Allergies SOCIAL HISTORY No smoking Hx information available PLAN OF CARE VITAL SIGNS MEDICATIONS Unknown Medications RESULTS No Results PROCEDURES No Known procedures IMMUNIZATIONS No Known Immunizations"
--- OUTSIDE RECORDS SUMMARY | ~2017-02-14 | XMS ---
Demographics + + + | Address | [address] | | | [address] | | | [place] [address] | + + + | Preferred Language | Unknown | + + + | Marital Status | Unknown | + + + | Roman Catholic Affiliation | Unknown | + + + | Race | Unknown | + + + | Ethnic Group | Unknown | + + + Author + + + | Author | [facility] | + + + | Organization | [facility] | + + + | Address | [address] | | | [place] [address] | + + + | Phone | | + + + Care Team Providers + + + + | Care Sausage Stuffer Name | Role | Phone | + + + + Unavailable | Unavailable | + + + + PROBLEMS +---------+ + + +--------+ + + | Type | Condition | ICD9-CM | UKV83-EQ | Onset | Condition | SNOMED | | | | Code | Code | Dates | Status | Code | +---------+ + + +--------+ + + | Problem | Low back | | M54.5 | | Active | 232252789 | | | pain | | | | | | +---------+ + + +--------+ + + | Problem | Contusion | | S90.32XD | | Active | 6626902804 | | | of left | | | | | 2293787 | | | foot, | | | | | | | | subsequent | | | | | | | | encounter | | | | | | +---------+ + + +--------+ + + | Problem | Pain in | | M54.6 | | Active | 650340041 | | | thoracic | | | | | | | | spine | | | | | | +---------+ + + +--------+ + + | Problem | Hyponatrem | | E87.1 | | Active | 94967450 | | | ia | | | | | | +---------+ + + +--------+ + + | Problem | Hypoglycem | E16.2 | | | Active | 180523695 | | | ia | | | | | | +---------+ + + +--------+ + + | Problem | Carpal | | G56.02 | | Active | 3920820123 | | | tunnel | | | | | [address] | | | syndrome | | | [...] | | E87.1 | | Active | 970322296 | | | levels | | | | | | +---------+ + + +--------+ + + | Problem | Left wrist | | M25.532 | | Active | 31583973 | | | pain | | | | | | +---------+ + + +--------+ + + | Problem | Lumbago | | M54.5 | | Active | 913496008 | +---------+ + + +--------+ + + | Problem | Hypothyroi | | E03.9 | | Active | 09487316 | | | dism | | | | | | +---------+ + + +--------+ + + | Problem | Migraines | | G43.909 | | Active | 28313382 | +---------+ + + +--------+ + + | Problem | Hypertensi | | I10 | | Active | 42053374 | | | on | | | | | | +---------+ + + +--------+ + + | Problem | H/O | Z87.898 | | | Active | | | | wheezing | | | | | | +---------+ + + +--------+ + + | Problem | Hyperchole | | E78.0 | | Active | 869432563 | | | steremia | | | | | | +---------+ + + +--------+ + + | Problem | Insomnia | | G47.00 | | Active | 572918505 | +---------+ + + +--------+ + + | Problem | Hypoglycem | E16.1 | | | Active | 350030 | | | ic | | | | | | | | reaction | | | | | | +---------+ + + +--------+ + + ALLERGIES Unknown Allergies SOCIAL HISTORY No smoking Hx information available PLAN OF CARE VITAL SIGNS MEDICATIONS Unknown Medications RESULTS No Results PROCEDURES No Known procedures IMMUNIZATIONS No Known Immunizations"
--- OUTSIDE RECORDS SUMMARY | ~2017-02-14 | XMS ---
Demographics + + + | Address | [address] | | | [place] [address] | + + + | Preferred Language | Unknown | + + + | Marital Status | Unknown | + + + | Muslim Affiliation | Unknown | + + + | Race | Unknown | + + + | Ethnic Group | Unknown | + + + Author + + + | Author | [facility] | + + + | Organization | [facility] | + + + | Address | [address] | | | [place] [address] | + + + | Phone | | + + + Care Team Providers + + + + | Care Websphere Portal Architect Name | Role | Phone | + + + + Unavailable | Unavailable | + + + + PROBLEMS +---------+ + + +--------+ + + | Type | Condition | ICD9-CM | [id number] | Onset | Condition | SNOMED | | | | Code | Code | Dates | Status | Code | +---------+ + + +--------+ + + | Problem | Anemia | | D64.9 | | Active | [id number] | +---------+ + + +--------+ + + | Problem | Hypothyroi | | E03.9 | | Active | 94597695 | | | dism | | | | | | +---------+ + + +--------+ + + | Problem | Lumbago | | M54.5 | | Active | 263340238 | +---------+ + + +--------+ + + | Problem | Hyponatrem | | E87.1 | | Active | 66462604 | | | ia | | | | | | +---------+ + + +--------+ + + | Problem | Hyperchole | | E78.0 | | Active | 781871611 | | | steremia | | | | | | +---------+ + + +--------+ + + | Problem | Insomnia | | G47.00 | | Active | 121221029 | +---------+ + + +--------+ + + | Problem | H/O | Z87.898 | | | Active | | | | wheezing | | | | | | +---------+ + + +--------+ + + | Problem | Hypertensi | | I10 | | Active | 00115675 | | | on | | | | | | +---------+ + + +--------+ + + | Problem | Migraines | | G43.909 | | Active | 36305372 | +---------+ + + +--------+ + + ALLERGIES Unknown Allergies SOCIAL HISTORY No smoking Hx information available PLAN OF CARE VITAL SIGNS MEDICATIONS + + + + + + + +--------+ | Medicati | Instruct | Dosage | Frequenc | Start | End Date | Duration | Status | | on | ions | | y | Date | | | | + + + + + + + +--------+ | Diflucan | Orally | 1 tablet | | 06 Sep, | 8 Sep, | 1 | Active | | 150 MG | as | | | 2017 | 2017 | dose(s) | | | | directed | | | | | | | + + + + + + + +--------+ RESULTS No Results PROCEDURES No Known procedures IMMUNIZATIONS No Known Immunizations"
--- OUTSIDE RECORDS SUMMARY | ~2017-02-14 | XMS ---
Demographics + + + | Address | [address] | | | [address] | | | [place] [address] | + + + | Preferred Language | Unknown | + + + | Marital Status | Unknown | + + + | Islam Affiliation | Unknown | + + + | Race | Unknown | + + + | Ethnic Group | Unknown | + + + Author + + + | Author | [facility] | + + + | Organization | [facility] | + + + | Address | [address] | | | [place] [address] | + + + | Phone | | + + + Care Team Providers + + + + | Care Gas Cutter Name | Role | Phone | + + + + Unavailable | Unavailable | + + + + PROBLEMS +---------+ + + +--------+ + + | Type | Condition | ICD9-CM | [id number] | Onset | Condition | SNOMED | | | | Code | Code | Dates | Status | Code | +---------+ + + +--------+ + + | Problem | Low back | | M54.5 | | Active | 282422045 | | | pain | | | | | | +---------+ + + +--------+ + + | Problem | Contusion | | S90.32XD | | Active | 3388108677 | | | of left | | | | | 9939312 | | | foot, | | | | | | | | subsequent | | | | | | | | encounter | | | | | | +---------+ + + +--------+ + + | Problem | Pain in | | M54.6 | | Active | 717771368 | | | thoracic | | | | | | | | spine | | | | | | +---------+ + + +--------+ + + | Problem | Hyponatrem | | E87.1 | | Active | 76051443 | | | ia | | | | | | +---------+ + + +--------+ + + | Problem | Hypoglycem | E16.2 | | | Active | 313919011 | | | ia | | | | | | +---------+ + + +--------+ + + | Problem | Carpal | | G56.02 | | Active | 9912919358 | | | tunnel | | | | | [address] | | | syndrome | | | [...] | | E87.1 | | Active | 157463323 | | | levels | | | | | | +---------+ + + +--------+ + + | Problem | Left wrist | | M25.532 | | Active | 21869880 | | | pain | | | | | | +---------+ + + +--------+ + + | Problem | Lumbago | | M54.5 | | Active | 793798097 | +---------+ + + +--------+ + + | Problem | Hypothyroi | | E03.9 | | Active | 92369519 | | | dism | | | | | | +---------+ + + +--------+ + + | Problem | Migraines | | G43.909 | | Active | 83144256 | +---------+ + + +--------+ + + | Problem | Hypertensi | | I10 | | Active | 23718261 | | | on | | | | | | +---------+ + + +--------+ + + | Problem | H/O | Z87.898 | | | Active | | | | wheezing | | | | | | +---------+ + + +--------+ + + | Problem | Hyperchole | | E78.0 | | Active | 491085661 | | | steremia | | | | | | +---------+ + + +--------+ + + | Problem | Insomnia | | G47.00 | | Active | 662238898 | +---------+ + + +--------+ + + | Problem | Hypoglycem | E16.1 | | | Active | 580084 | | | ic | | | [...] + + | Est Level IV | September 16, 2016 | | | | Extended | | | | + + + + + IMMUNIZATIONS No Known Immunizations"
--- OUTSIDE RECORDS SUMMARY | ~2017-02-14 | XMS ---
Demographics + + + | Address | [address] | | | [address] | | | [place] [address] | + + + | Preferred Language | Unknown | + + + | Marital Status | Unknown | + + + | Lutheran Affiliation | Unknown | + + + | Race | Unknown | + + + | Ethnic Group | Unknown | + + + Author + + + | Author | [facility] | + + + | Organization | [facility] | + + + | Address | [address] | | | [place] [address] | + + + | Phone | | + + + Care Team Providers + + + + | Care Marsh Buggy Operator Name | Role | Phone | + + + + Unavailable | Unavailable | + + + + PROBLEMS +---------+ + + +--------+ + + | Type | Condition | ICD9-CM | [id number] | Onset | Condition | SNOMED | | | | Code | Code | Dates | Status | Code | +---------+ + + +--------+ + + | Problem | Hypoglycem | E16.1 | | | Active | 196096 | | | ic | | | | | | | | reaction | | | | | | +---------+ + + +--------+ + + | Problem | Pain in | | M54.6 | | Active | 416416014 | | | thoracic | | | | | | | | spine | | | | | | +---------+ + + +--------+ + + | Problem | Low back | | M54.5 | | Active | 788273585 | | | pain | | | | | | +---------+ + + +--------+ + + | Problem | Hypoglycem | E16.2 | | | Active | 356500389 | | | ia | | | | | | +---------+ + + +--------+ + + | Problem | Low sodium | | E87.1 | | Active | 946986451 | | | levels | | | | | | +---------+ + + +--------+ + + | Problem | Left wrist | S69.92XA | | | Active | | | | injury | | | | | | +---------+ + + +--------+ + + | Problem | Contusion | | S90.32XD | | Active | 4730363761 | | | of left | | | | | 7842520 | | | foot, | | | | | | | | subsequent | | | | | | | | encounter | | | | | | +---------+ + + +--------+ + + | Problem | Left wrist | | M25.532 | | Active | 93514246 | | | pain | | | | | | +---------+ + + +--------+ + + | Problem | Carpal | | G56.02 | | Active | 3428970521 | | | tunnel | | | | | 81586 | | | syndrome | | | | | | | | of left | | | | | | | | wrist | | | | | | +---------+ + + +--------+ + + | Problem | Lumbago | | M54.5 | | Active | 607669328 | +---------+ + + +--------+ + + | Problem | Insomnia | | G47.00 | | Active | 689790490 | +---------+ + + +--------+ + + | Problem | Migraines | | G43.909 | | Active | 80285333 | +---------+ + + +--------+ + + | Problem | Hypothyroi | | E03.9 | | Active | 86162725 | | | dism | | | | | | +---------+ + + +--------+ + + | Problem | Hypertensi | | I10 | | Active | 80187742 | | | on | | | | | | +---------+ + + +--------+ + + | Problem | H/O | Z87.898 | | | Active | | | | wheezing | | | | | | +---------+ + + +--------+ + + | Problem | Hyperchole | | E78.0 | | Active | 994668418 | | | steremia | | | [...]
--- OUTSIDE RECORDS SUMMARY | ~2017-02-14 | XMS ---
Demographics + + + | Address | [address] | | | [place] [address] | + + + | Preferred Language | Unknown | + + + | Marital Status | Unknown | + + + | Hindu Affiliation | Unknown | + + + | Race | Unknown | + + + | Ethnic Group | Unknown | + + + Author + + + | Author | [facility] | + + + | Organization | [facility] | + + + | Address | [address] | | | [place] [address] | + + + | Phone | | + + + Care Team Providers + + + + | Care Small Craft Operator Name | Role | Phone | + + + + Unavailable | Unavailable | + + + + PROBLEMS +---------+ + + +--------+ + + | Type | Condition | ICD9-CM | GAP07-UQ | Onset | Condition | SNOMED | | | | Code | Code | Dates | Status | Code | +---------+ + + +--------+ + + | Problem | Lumbago | | M54.5 | | Active | 967424505 | +---------+ + + +--------+ + + | Problem | H/O | Z87.898 | | | Active | | | | wheezing | | | | | | +---------+ + + +--------+ + + | Problem | Hypothyroi | | E03.9 | | Active | 13515955 | | | dism | | | | | | +---------+ + + +--------+ + + | Problem | Anemia | | D64.9 | | Active | 575824880 | +---------+ + + +--------+ + + | Problem | Contusion | S90.31XA | | | Active | 53552368 | | | of foot, | | | | | | | | right | | | | | | +---------+ + + +--------+ + + | Problem | Hyponatrem | | E87.1 | | Active | 63612344 | | | ia | | | | | | +---------+ + + +--------+ + + | Problem | Migraines | | G43.909 | | Active | 17055000 | +---------+ + + +--------+ + + | Problem | Insomnia | | G47.00 | | Active | 235963273 | +---------+ + + +--------+ + + | Problem | Hyperchole | | E78.0 | | Active | 337857898 | | | steremia | | | | | | +---------+ + + +--------+ + + | Problem | Hypertensi | | I10 | | Active | 94800612 | | | on | | | | | | +---------+ + + +--------+ + + ALLERGIES + + + + +--------+ | Substance | Reaction | Event Type | Date | Status | + + + + +--------+ | bee stings | Unknown | Non Drug | Oct, | Active | | | | Allergy | | | + + + + +--------+ | Toradol | drops blood | Non Drug | Oct, | Active | | | sugar | Allergy | | | + + + + +--------+ | CODEINE | back pain | Non Drug | Oct, | Active | | | | Allergy | | | + + + + +--------+ | ASPIRIN | anaphylaxis | Non Drug | Oct, | Active | | | | Allergy | | | + + + + +--------+ SOCIAL HISTORY Never Assessed PLAN OF CARE + +---------+ | Activity | Details | + +---------+ +---+ | | +---+ + + + | Follow Up | 1 Week with labwork Reason:null | + + + | Pending Test | Comp. Metabolic Panel (14) | + + + VITAL SIGNS + + + + | Height | 62 in | 2016-11-19 | + + + + | Weight | 231.4 lbs | 2016-11-19 | + + + + | BMI | 42.32 kg/m2 | 2016-11-19 | + + + + | Temperature | 97.7 degrees Fahrenheit | 2016-11-19 | + + + + | Heart Rate | 87 /min | 2016-11-19 | + + + + | Blood pressure systolic | 151 mm Hg | 2016-11-19 | + + + + | Blood pressure diastolic | 94 mm Hg | 2016-11-19 | + + + + MEDICATIONS + [...] Orally | 1 | 24h | 21 Aug, | | 30 | Active | | lol HCl | Once a | capsule | | 2017 | | | | | ER 160 [...] + +--------+ | Chlortha | Orally | take 1 | 24h | | | 90 days | Active | | lidone | Once a | tablet | | | | | | | 25 MG | day | by mouth | | [...] 1 | 1 tablet | | | Nov, | 30 | Active | | | tab qid | as | | | 2016 | day(s) | | | 50-325-4 | | needed | | | | | | | 0 MG | | | | | | | | + + + + + + + +--------+ | Diclofen | | | | | | | Active | | ac | | | | | | | | + + + + + + + +--------+ | Losartan | Orally | take 1 | 24h | 08 Cedric, | | 30 | [...] | 90 days | Active | | oxine | Once [...] + + + + + +--------+ RESULTS + +--------+------+ + | Name | Result | Date | Reference Range | + +--------+------+ + | Multi-Drug Screen | | | | | (i-Cup) | | | | + +--------+------+ + | BAR | neg | | | + +--------+------+ + | BZO | neg | | | + +--------+------+ + | OPI | neg | | | + +--------+------+ + | MET | neg | | | + +--------+------+ + | MDMA | neg | | | + +--------+------+ + | OXY | neg | | | + +--------+------+ + | AMP | neg | | | + +--------+------+ + | JOHANA | neg | | | + +--------+------+ + | MTD | neg | | | + +--------+------+ + | THC | neg | | | + +--------+------+ + | Temp Range | | | | + +--------+------+ + PROCEDURES + + +--------+ + | Procedure | Date Ordered | Result | Body Site | + + +--------+ + | Multi-Drug screen | Nov 19, 2016 | | | | any number | | | | + + +--------+ + IMMUNIZATIONS No Known Immunizations MEDICAL (GENERAL) HISTORY [...]
--- OUTSIDE RECORDS SUMMARY | ~2017-02-14 | XMS ---
Demographics + + + | Address | [address] | | | [place] [address] | + + + | Preferred Language | Unknown | + + + | Marital Status | Unknown | + + + | Protestant Affiliation | Unknown | + + + | Race | Unknown | + + + | Ethnic Group | Unknown | + + + Author + + + | Author | [facility] | + + + | Organization | [facility] | + + + | Address | [address] | | | [place] [address] | + + + | Phone | | + + + Care Team Providers + + + + | Care Group Director Experience Name | Role | Phone | + + + + Unavailable | Unavailable | + + + + PROBLEMS +---------+ + + +--------+ + + | Type | Condition | ICD9-CM | [id number] | Onset | Condition | SNOMED | | | | Code | Code | Dates | Status | Code | +---------+ + + +--------+ + + | Problem | Anemia | | D64.9 | | Active | 909535098 | +---------+ + + +--------+ + + | Problem | Hypothyroi | | E03.9 | | Active | 43413440 | | | dism | | | | | | +---------+ + + +--------+ + + | Problem | Lumbago | | M54.5 | | Active | 664864332 | +---------+ + + +--------+ + + | Problem | Hyponatrem | | E87.1 | | Active | 14295170 | | | ia | | | | | | +---------+ + + +--------+ + + | Problem | Hyperchole | | E78.0 | | Active | 765110340 | | | steremia | | | | | | +---------+ + + +--------+ + + | Problem | Insomnia | | G47.00 | | Active | 034725944 | +---------+ + + +--------+ + + | Problem | H/O | Z87.898 | | | Active | | | | wheezing | | | | | | +---------+ + + +--------+ + + | Problem | Hypertensi | | I10 | | Active | 01154020 | | | on | | | | | | +---------+ + + +--------+ + + | Problem | Migraines | | G43.909 | | Active | 79486386 | +---------+ + + +--------+ + + [...] 06 Sep, | 8 Sep, | 1 days | Active | | 150 MG | as | | | 2017 | 2017 | | | | | directed | | | | | | | + + + + + + + +--------+ RESULTS No Results PROCEDURES No Known procedures IMMUNIZATIONS No Known Immunizations"
--- OUTSIDE RECORDS SUMMARY | ~2017-02-14 | XMS ---
Demographics + + + | Address | [address] | | | [place] [address] | + + + | Preferred Language [...] | + + + | Organization | [facility] | + + + | Address | [address] | | | [place] [address] | + + + | Phone | | + + + Care Team Providers + + + + | Care Aircraft Painter Apprentice Name | Role | Phone | + + + + Unavailable | Unavailable | + + + + PROBLEMS +---------+ + + +--------+ + + | Type | Condition | ICD9-CM | [id number] | Onset | Condition | SNOMED | | | | Code | Code | Dates | Status | Code | +---------+ + + +--------+ + + | Problem | Anemia | | D64.9 | | Active | 357641562 | +---------+ + + +--------+ + + | Problem | Hypothyroi | | E03.9 | | Active | 01978838 | | | dism | | | | | | +---------+ + + +--------+ + + | Problem | Lumbago | | M54.5 | | Active | 760120659 | +---------+ + + +--------+ + + | Problem | Hyponatrem | | E87.1 | | Active | 78297293 | | | ia | | | | | | +---------+ + + +--------+ + + | Problem | Hyperchole | | E78.0 | | Active | 774017874 | | | steremia | | | | | | +---------+ + + +--------+ + + | Problem | Insomnia | | G47.00 | | Active | 997850613 | +---------+ + + +--------+ + + | Problem | H/O | Z87.898 | | | Active | | | | wheezing | | | | | | +---------+ + + +--------+ + + | Problem | Hypertensi | | I10 | | Active | 38495772 | | | on | | | | | | +---------+ + + +--------+ + + | Problem | Migraines | | G43.909 | | Active | 83434820 | +---------+ + + +--------+ + + ALLERGIES Unknown Allergies SOCIAL HISTORY No smoking Hx information available PLAN OF CARE VITAL SIGNS MEDICATIONS Unknown Medications RESULTS No Results PROCEDURES No Known procedures IMMUNIZATIONS No Known Immunizations"
--- OUTSIDE RECORDS SUMMARY | ~2017-02-14 | XMS ---
Demographics + + + | Address | [address] | | | [place] [address] | + + + | Preferred Language | Unknown | + + + | Marital Status | Unknown | + + + | Denominational Affiliation | Unknown | + + + | Race | Unknown | + + + | Ethnic Group | Unknown | + + + Author + + + | Author | [facility] | + + + | Organization | [facility] | + + + | Address | [address] | | | [place] [address] | + + + | Phone | | + + + Care Team Providers + + + + | Care Motorcycle Riding Instructor Name | Role | Phone | + + + + Unavailable | Unavailable | + + + + PROBLEMS +---------+ + + +--------+ + + | Type | Condition | ICD9-CM | [id number] | Onset | Condition | SNOMED | | | | Code | Code | Dates | Status | Code | +---------+ + + +--------+ + + | Problem | Anemia | | D64.9 | | Active | 598316854 | +---------+ + + +--------+ + + | Problem | Hypothyroi | | E03.9 | | Active | 97900468 | | | dism | | | | | | +---------+ + + +--------+ + + | Problem | Lumbago | | M54.5 | | Active | 669096623 | +---------+ + + +--------+ + + | Problem | Hyponatrem | | E87.1 | | Active | 90018931 | | | ia | | | | | | +---------+ + + +--------+ + + | Problem | Hyperchole | | E78.0 | | Active | 262039652 | | | steremia | | | | | | +---------+ + + +--------+ + + | Problem | Insomnia | | G47.00 | | Active | 083223391 | +---------+ + + +--------+ + + | Problem | H/O | Z87.898 | | | Active | | | | wheezing | | | | | | +---------+ + + +--------+ + + | Problem | Hypertensi | | I10 | | Active | 44699134 | | | on | | | | | | +---------+ + + +--------+ + + | Problem | Migraines | | G43.909 | | Active | 95206939 | +---------+ + + +--------+ + + [...] + + + | Follow Up | 4 Weeks Reason:null | + + + | Pending Test | Comp. Metabolic Panel (14) | + + + | Pending Test | CBC | + + + VITAL SIGNS + + + + | Height | 62 in | 2016-10-30 | + + + + | Weight | 222.0 lbs | 2016-10-30 | + + + + | BMI | 40.60 kg/m2 | 2016-10-30 | + + + + | Temperature | 97.0 degrees Fahrenheit | 2016-10-30 | + + + + | Heart Rate | 77 /min | 2016-10-30 | + + + + | Blood pressure systolic | 130 mm Hg | 2016-10-30 | + + + + | Blood pressure diastolic | 90 mm Hg | 2016-10-30 | + + + + MEDICATIONS + [...] + | Est Level IV | Oct 30, 2016 | | | | Extended | | | | + + + + + IMMUNIZATIONS No Known Immunizations"
--- OUTSIDE RECORDS SUMMARY | ~2017-02-14 | XMS ---
Demographics + + + | Address | [address] | | | [address] | | | [place] [address] | + + + | Preferred Language | Unknown | + + + | Marital Status | Unknown | + + + | Muslim Affiliation | Unknown | + + + | Race | Unknown | + + + | Ethnic Group | Unknown | + + + Author + + + | Author | [facility] | + + + | Organization | [facility] | + + + | Address | [address] | | | [place] [address] | + + + | Phone | | + + + Care Team Providers + + + + | Care Technical Advisor Name | Role | Phone | + + + + Unavailable | Unavailable | + + + + PROBLEMS +---------+ + + +--------+ + + | Type | Condition | ICD9-CM | [id number] | Onset | Condition | SNOMED | | | | Code | Code | Dates | Status | Code | +---------+ + + +--------+ + + | Problem | Hypoglycem | E16.1 | | | Active | 827115 | | | ic | | | | | | | | reaction | | | | | | +---------+ + + +--------+ + + | Problem | Pain in | | M54.6 | | Active | 257788921 | | | thoracic | | | | | | | | spine | | | | | | +---------+ + + +--------+ + + | Problem | Low back | | M54.5 | | Active | 248952502 | | | pain | | | | | | +---------+ + + +--------+ + + | Problem | Hypoglycem | E16.2 | | | Active | 559428887 | | | ia | | | | | | +---------+ + + +--------+ + + | Problem | Low sodium | | E87.1 | | Active | 332041277 | | | levels | | | | | | +---------+ + + +--------+ + + | Problem | Left wrist | S69.92XA | | | Active | | | | injury | | | | | | +---------+ + + +--------+ + + | Problem | Contusion | | S90.32XD | | Active | 3638860121 | | | of left | | | | | 1735364 | | | foot, | | | | | | | | subsequent | | | | | | | | encounter | | | | | | +---------+ + + +--------+ + + | Problem | Left wrist | | M25.532 | | Active | 44849397 | | | pain | | | | | | +---------+ + + +--------+ + + | Problem | Carpal | | G56.02 | | Active | 3456738288 | | | tunnel | | | | | [address] | | | syndrome | | | | | | | | of left | | | | | | | | wrist | | | | | | +---------+ + + +--------+ + + | Problem | Lumbago | | M54.5 | | Active | 976683418 | +---------+ + + +--------+ + + | Problem | Insomnia | | G47.00 | | Active | 818299945 | +---------+ + + +--------+ + + | Problem | Migraines | | G43.909 | | Active | 16973655 | +---------+ + + +--------+ + + | Problem | Hypothyroi | | E03.9 | | Active | 41369085 | | | dism | | | | | | +---------+ + + +--------+ + + | Problem | Hypertensi | | I10 | | Active | 82167617 | | | on | | | | | | +---------+ + + +--------+ + + | Problem | H/O | Z87.898 | | | Active | | | | wheezing | | | | | | +---------+ + + +--------+ + + | Problem | Hyperchole | | E78.0 | | Active | 185212329 | | | steremia | | | [...] 1 Week Reason:null | + + + VITAL SIGNS + + + + | Height | 62 in | 2016-08-02 | + + + + | Weight | 223.2 lbs | 2016-08-02 | + + + + | BMI | 40.82 kg/m2 | 2016-08-02 | + + + + | Temperature | 97.8 degrees Fahrenheit | 2016-08-02 | + + + + | Heart Rate | 79 /min | 2016-08-02 | + + + + | Blood pressure systolic | 189 mm Hg | 2016-08-02 | + + + + | Blood pressure diastolic | 131 mm Hg | 2016-08-02 | + + + + MEDICATIONS + [...] Orally | 1 tablet | 8h | Apr, | Jul, | 30 | Active | | ac | Three | with | | 2016 | 2016 | day(s) | | | Sodium | times a | food or | | | | | | | 50 mg | day | milk | | | | | | + + + + + + + +--------+ | Ciprodex | Otic | 4 drops | 12h | Jul, | | 5 day(s) | Active | | 0.3-0.1 | Twice a | into | | 2016 | | | | | % | day | affected | | | | | | | | | ear | | | | | | + + + + + + + +--------+ RESULTS + +--------+------+ + | Name | Result | Date | Reference Range | + +--------+------+ + | Strep Gp A Rapid | | | | | (IH) | | | | + +--------+------+ + PROCEDURES + + + + + | Procedure | Date Ordered | Related Diagnosis | Body Site | + + + + + | Est Level III | August 02, 2016 | | | | Intermediate | | | | + + + + + | STREP A ASSAY | August 02, 2016 | | | | W/OPTIC | | | | + + + + + IMMUNIZATIONS No Known Immunizations"
--- OUTSIDE RECORDS SUMMARY | ~2017-02-14 | XMS ---
Demographics + + + | Address | [address] | | | [address] | | | [place] [address] | + + + | Preferred Language | Unknown | + + + | Marital Status | Unknown | + + + | Latter-Day Affiliation | Unknown | + + + | Race | Unknown | + + + | Ethnic Group | Unknown | + + + Author + + + | Author | [facility] | + + + | Organization | [facility] | + + + | Address | [address] | | | [place] [address] | + + + | Phone | | + + + Care Team Providers + + + + | Care Bit Bender Name | Role | Phone | + + + + Unavailable | Unavailable | + + + + PROBLEMS +---------+ + + +--------+ + + | Type | Condition | ICD9-CM | [id number] | Onset | Condition | SNOMED | | | | Code | Code | Dates | Status | Code | +---------+ + + +--------+ + + | Problem | Low back | | M54.5 | | Active | [id number] | | | pain | | | | | | +---------+ + + +--------+ + + | Problem | Contusion | | S90.32XD | | Active | [id number] | | | of left | | | | | 6735363 | | | foot, | | | | | | | | subsequent | | | | | | | | encounter | | | | | | +---------+ + + +--------+ + + | Problem | Pain in | | M54.6 | | Active | 974234869 | | | thoracic | | | | | | | | spine | | | | | | +---------+ + + +--------+ + + | Problem | Hyponatrem | | E87.1 | | Active | 24660082 | | | ia | | | | | | +---------+ + + +--------+ + + | Problem | Hypoglycem | E16.2 | | | Active | 072787294 | | | ia | | | | | | +---------+ + + +--------+ + + | Problem | Carpal | | G56.02 | | Active | [id number] | | | tunnel | | | | | [address] | | | syndrome | | | [...] | | E87.1 | | Active | 635721878 | | | levels | | | | | | +---------+ + + +--------+ + + | Problem | Left wrist | | M25.532 | | Active | 53771516 | | | pain | | | | | | +---------+ + + +--------+ + + | Problem | Lumbago | | M54.5 | | Active | 497895150 | +---------+ + + +--------+ + + | Problem | Hypothyroi | | E03.9 | | Active | 28586467 | | | dism | | | | | | +---------+ + + +--------+ + + | Problem | Migraines | | G43.909 | | Active | 44624977 | +---------+ + + +--------+ + + | Problem | Hypertensi | | I10 | | Active | 53717686 | | | on | | | | | | +---------+ + + +--------+ + + | Problem | H/O | Z87.898 | | | Active | | | | wheezing | | | | | | +---------+ + + +--------+ + + | Problem | Hyperchole | | E78.0 | | Active | 298246055 | | | steremia | | | | | | +---------+ + + +--------+ + + | Problem | Insomnia | | G47.00 | | Active | 382675885 | +---------+ + + +--------+ + + | Problem | Hypoglycem | E16.1 | | | Active | 579260 | | | ic | | | | | | | | reaction | | | | | | +---------+ + + +--------+ + + ALLERGIES Unknown Allergies SOCIAL HISTORY No smoking Hx information available PLAN OF CARE VITAL SIGNS MEDICATIONS Unknown Medications RESULTS No Results PROCEDURES No Known procedures IMMUNIZATIONS No Known Immunizations"
[~2017-02-14 22:02] MED LIST changes: -CARVEDILOL12.5 MG PO; -FERROUS SULFAT325 MG PO; -SPIRONOLACTONE25 MG PO
[2017-02-14] MEDS ORDERED: SPIRONOLACTONE25 MG PO (22:18)
[2017-02-14] MEDS ORDERED: CARVEDILOL12.5 MG PO (22:18)
[2017-02-14] MEDS ORDERED: FERROUS SULFAT325 MG PO (22:19)
== END 2017-02-15 00:52 | disposition home or self-care (01) ==
LOC: ED 22:02
DX: R51 Headache (principal); I10 Essential (primary) hypertension; E03.9 Hypothyroidism, unspecified; F17.200 Nicotine dependence, unspecified, uncomplicated; Z90.49 Acquired absence of other specified parts of digestive tract; Z98.84 Bariatric surgery status; Z90.710 Acquired absence of both cervix and uterus; Z88.6 Allergy status to analgesic agent; Z88.5 Allergy status to narcotic agent; Z88.2 Allergy status to sulfonamides; Z88.8 Allergy status to other drugs, medicaments and biological substances; Z79.899 Other long term (current) drug therapy
CPT/HCPCS: 96374; 96375; 99282; J1200; J1885; J2765; J7030

== ENCOUNTER 2017-10-06 17:46 | Emergency (ER) | payer OTHER ==
--- OUTSIDE RECORDS SUMMARY | ~2017-10-06 | XMS ---
Demographics + + + | Address | [facility] [address] | | | [address] | | | [place] [address] | + + + | Preferred Language | Unknown | + + + | Marital Status | Unknown | + + + | Gnosticism Affiliation | Unknown | + + + | Race | Unknown | + + + | Ethnic Group | Unknown | + + + Author + + + | Author | [facility] | + + + | Organization | [facility] | + + + | Address | [address] | | | [place] [address] | + + + | Phone | | + + + Care Team Providers + + + + | Care Fence Making Machine Operator Name | Role | Phone | + + + + Unavailable | Unavailable | + + + + PROBLEMS +---------+ + + +--------+ + + | Type | Condition | ICD9-CM | [id number]-BK | Onset | Condition | SNOMED | | | | Code | Code | Dates | Status | Code | +---------+ + + +--------+ + + | Problem | Hypoglycem | E16.1 | | | Active | 938665 | | | ic | | | | | | | | reaction | | | | | | +---------+ + + +--------+ + + | Problem | Pain in | | M54.6 | | Active | 537659245 | | | thoracic | | | | | | | | spine | | | | | | +---------+ + + +--------+ + + | Problem | Low back | | M54.5 | | Active | 005070413 | | | pain | | | | | | +---------+ + + +--------+ + + | Problem | Hypoglycem | E16.2 | | | Active | 277021231 | | | ia | | | | | | +---------+ + + +--------+ + + | Problem | Low sodium | | E87.1 | | Active | 550310997 | | | levels | | | | | | +---------+ + + +--------+ + + | Problem | Left wrist | S69.92XA | | | Active | | | | injury | | | | | | +---------+ + + +--------+ + + | Problem | Contusion | | S90.32XD | | Active | [id number] | | | of left | | | | | 7704578 | | | foot, | | | | | | | | subsequent | | | | | | | | encounter | | | | | | +---------+ + + +--------+ + + | Problem | Left wrist | | M25.532 | | Active | 05788250 | | | pain | | | | | | +---------+ + + +--------+ + + | Problem | Carpal | | G56.02 | | Active | 5115839205 | | | tunnel | | | | | [address] | | | syndrome | | | | | | | | of left | | | | | | | | wrist | | | | | | +---------+ + + +--------+ + + | Problem | Lumbago | | M54.5 | | Active | 721040841 | +---------+ + + +--------+ + + | Problem | Insomnia | | G47.00 | | Active | 593156507 | +---------+ + + +--------+ + + | Problem | Migraines | | G43.909 | | Active | 37568145 | +---------+ + + +--------+ + + | Problem | Hypothyroi | | E03.9 | | Active | 15099755 | | | dism | | | | | | +---------+ + + +--------+ + + | Problem | Hypertensi | | I10 | | Active | 98348567 | | | on | | | | | | +---------+ + + +--------+ + + | Problem | H/O | Z87.898 | | | Active | | | | wheezing | | | | | | +---------+ + + +--------+ + + | Problem | Hyperchole | | E78.0 | | Active | 811394488 | | | steremia | | | | | | +---------+ + + +--------+ + + ALLERGIES + + + + +--------+ | Substance | Reaction | Event Type | Date | Status | + + + + +--------+ | Toradol | drops blood | Non Drug | Jul, | Active | | | sugar | Allergy | | | + + + + +--------+ | CODEINE | back pain | Non Drug | Jul, | Active | | | | Allergy | | | + + + + +--------+ | ASPIRIN | anaphylaxis | Non Drug | Jul, | Active | | | | Allergy | | | + + + + +--------+ SOCIAL HISTORY No smoking Hx information available PLAN OF CARE + +---------+ | Activity | Details | + +---------+ +---+ | | +---+ + + + | Follow Up | 6 Weeks Reason:null | + + + | Pending Test | TSH | + + + | Pending Test | Comp. Metabolic Panel (14) | + + + | Pending Test | Lipid Panel | + + + | Pending Test | Hemoglobin A1C Panel | + + + | Pending Test | CBC | + + + VITAL SIGNS + + + + | Height | 62 in | 2016-08-12 | + + + + | Weight | 225.8 lbs | 2016-08-12 | + + + + | BMI | 41.29 kg/m2 | 2016-08-12 | + + + + | Temperature | 97.0 degrees Fahrenheit | 2016-08-12 | + + + + | Heart Rate | 68 /min | 2016-08-12 | + + + + | Blood pressure systolic | 153 mm Hg | 2016-08-12 | + + + + | Blood pressure diastolic | 96 mm Hg | 2016-08-12 | + + + + MEDICATIONS + + + + + + + +--------+ | Medicati | Instruct | Dosage | Frequenc | Start | End Date | Duration | Status | | on | ions | | y | Date | | | | + + + + + + + +--------+ | Gabapent | Orally | 1-3 | | 07 Nov, | | 90 days | Active | | in 300 | tid prn | tablets | | 2016 | | | | | MG | | as | | | | | | | | | directed | | | | | | + + + + + + + +--------+ | Azithrom | Orally | 2 | 24h | | | 5 days | Active | | ycin 250 | daily | tablets | | | | | | | MG | | q stat | | | | | | | | | then 1 | | | | | | | | | daily x | | | | | | | | | 4 days | | | | | | + + + + + + + +--------+ | Chlortha | Orally | 1 tablet | 24h | | | 90 days | Active | | lidone | Once a | every | | | | | | | 25 MG | day | morning | | | | | | + + + + + + + +--------+ | Tylenol | Orally | 1 tablet | 6h | | | | Active | | Extra | every 6 | as | | | | | | | Strength | hrs | needed | | | | | | | 500 MG | | | | | | | | + + + + + + + +--------+ | Diclofen | Orally | 1 tablet | 8h | 29 Apr, | 27 Jul, | 30 | Active | | ac | Three | with | | 2017 | 2017 | day(s) | | | Sodium | times a | food or | | | | | | | 50 mg | day | milk | | | | | | + + + + + + + +--------+ | Proprano | Orally | 1 | 24h | | | 90 days | Active | | lol HCl | Once a | capsule | | | | | | | ER 160 | day | | | | | | | | MG | | | | | | | | + + + + + + + +--------+ | Losartan | | take 1 | | 08 Cedric, | | 30 | Active | | | | tablet | | 2017 | | | | | Potassiu | | by mouth | | | | | | | m 50 MG | | once | | | | | | | | | daily | | | | | | + + + + + + + +--------+ | Albutero | Inhalati | 2 puffs | 4h | | | 30 | Active | | l | on every | as | | | | | | | Sulfate | 4 hrs | needed | | | | | | | HFA 108 | | | | | | | | | (90 | | | | | | | | | Base) | | | | | | | | | MCG/ACT | | | | | | | | + + + + + + + +--------+ | Ferrous | | take 1 | | | | 30 | Active | | Sulfate | | tablet | | | | | | | 325 (65 | | by mouth | | | | | | | Fe) MG | | twice a | | | | | | | | | day | | | | | | + + + + + + + +--------+ | Vitamin | Orally | 1 tablet | 24h | | | 30 | Active | | D3 1000 | Once a | | | | | day(s) | | | UNIT | day | | | | | | | + + + + + + + +--------+ | Levothyr | Orally | 1 tablet | 24h | | | | Active | | oxine | Once a | every | | | | | | | Sodium | day | morning | | | | | | | 75 MCG | | on an | | | | | | | | | empty | | | | | | | | | stomach | | | | | | + + + + + + + +--------+ RESULTS No Results PROCEDURES + + + + + | Procedure | Date Ordered | Related Diagnosis | Body Site | + + + + + | Est Level III | August 12, 2016 | | | | Intermediate | | | | + + + + + IMMUNIZATIONS No Known Immunizations"
--- OUTSIDE RECORDS SUMMARY | ~2017-10-06 | XMS | Encounter Summary ---
Demographics + + + | Address | [address] | | | [place] [address] | + + + | Home Phone | | + + + | Preferred Language | Unknown | + + + | Marital Status | Single | + + + | Mormon Affiliation | Unknown | + + + | Race | Unknown | + + + | Ethnic Group | Unknown | + + + Author + + + | Author | [facility] | + + + | Organization | [facility] | + + + | Address | Unknown | + + + | Phone | Unavailable | + + + Support + + +---------+ + | Name | Relationship | Address | Phone | + + +---------+ + | Aviva Araujo | ECON | Unknown | | + + +---------+ + Care Team Providers + +------+ + | Care Telephone Engineer Name | Role | Phone | [...] [place] | | | | | | [address] | | | | | | [phone] | | | +--------+ + + + [...]
--- OUTSIDE RECORDS SUMMARY | ~2017-10-06 | XMS | Clinical Summary ---
Demographics + + + | Address | [address] | | | [place] [address] | + + + | Home Phone | | + + + | Preferred Language | Unknown | + + + | Marital Status | Single | + + + | Judaism Affiliation | Unknown | + + + | Race | Unknown | + + + | Ethnic Group | Unknown | + + + Author + + + | Author | [facility] | + + + | Organization | [facility] | + + + | Address | Unknown | + + + | Phone | Unavailable | + + + Support + + +---------+ + | Name | Relationship | Address | Phone | + + +---------+ + | Aviva Araujo | ECON | Unknown | | + + +---------+ + Care Team Providers + +------+ + | Care Trichologist Name | Role | Phone | + [...] | | | | Activ | | [id number] | | | | | | e [...] +------+-------+ + | MEDICAID | [employer] | [id number] | | | [address] | | | [place] | | | | [place] | | | [place] | | | | [address] | | | OCEAN EXPORT COORDINATOR | | | | | + +--------+ [...] | | al/Fam | | [phone] | [phone] | [place] | | | [place] | | | [phone] | + +--------+ +--------+ + +
--- OUTSIDE RECORDS SUMMARY | ~2017-10-06 | XMS | Encounter Summary ---
Demographics + + + | Address | [address] | | | [place] [address] | + + + | Home Phone | | + + + | Preferred Language | Unknown | + + + | Marital Status | Single | + + + | Taoist Affiliation | Unknown | + + + | Race | Unknown | + + + | Ethnic Group | Unknown | + + + Author + + + | Author | [facility] | + + + | Organization | [facility] | + + + | Address | Unknown | + + + | Phone | Unavailable | + + + Support + + +---------+ + | Name | Relationship | Address | Phone | + + +---------+ + | Aviva Araujo | ECON | Unknown | | + + +---------+ + Care Team Providers + +------+ + | Care Induction Machine Setter Name | Role | Phone | + [...] [place] | | | | | | [address] | | | | | | [phone] | | | +--------+ + + + [...]
--- OUTSIDE RECORDS SUMMARY | ~2017-10-06 | XMS | Clinical Summary ---
Demographics + + + | Address | [address] | | | [place] [address] | + + + | Home Phone | | + + + | Preferred Language | Unknown | + + + | Marital Status | Single | + + + | Rastafarian Affiliation | Unknown | + + + | Race | Unknown | + + + | Ethnic Group | Unknown | + + + Author + + + | Author | [facility] | + + + | Organization | [facility] | + + + | Address | Unknown | + + + | Phone | Unavailable | + + + Support + + +---------+ + | Name | Relationship | Address | Phone | + + +---------+ + | Aviva Araujo | ECON | Unknown | | + + +---------+ + Care Team Providers + +------+ + | Care Anthropometrist Name | Role | Phone | + [...] | | | | Activ | | [id number] | | | | | | e [...] +------+-------+ + | MEDICAID | [employer] | [id number] | | | [address] | | | [place] | | | | [place] | | | [place] | | | | [address] | | | WATER METER INSTALLER | | | | | + +--------+ [...] | | al/Fam | | [phone] | [phone] | [place] | | | lfor | | | [phone] | + +--------+ +--------+ + +
[~2017-10-06 17:46] MED LIST changes: +CARVEDILOL12.5 MG PO; +FERROUS SULFAT325 MG PO; +SPIRONOLACTONE25 MG PO
== END 2017-10-06 18:19 | disposition left against medical advice (07) ==
LOC: ED 17:46
DX: Z53.21 Procedure and treatment not carried out due to patient leaving prior to being seen by health care provider (principal)

== ENCOUNTER 2017-10-19 03:26 | Emergency (ER) | payer OTHER ==
[~2017-10-19] VITALS: Ht 157.5 cm; Wt 96.2 kg
--- OUTSIDE RECORDS SUMMARY | ~2017-10-19 | XMS | Clinical Summary ---
Demographics + + + | Address | [address] | | | [place] [address] | + + + | Home Phone | | + + + | Preferred Language | Unknown | + + + | Marital Status | Single | + + + | Lutheran Affiliation | Unknown | + + + | Race | Unknown | + + + | Ethnic Group | Unknown | + + + Author + + + | Author | [facility] | + + + | Organization | [facility] | + + + | Address | Unknown | + + + | Phone | Unavailable | + + + Support + + +---------+ + | Name | Relationship | Address | Phone | + + +---------+ + | Aviva Araujo | ECON | Unknown | | + + +---------+ + Care Team Providers + +------+ + | Care Site Reliability Engineer Name | Role | Phone | + +------+ + | Oanh Hoffman NP | PP | | + +------+ + Allergies + [...] + + + | Codeine | GI Distress | Low | 12/31/19 | | | | | | 17 | | + + + + + + | Topiramate | Rash | Medium | 12/04/20 | | | | | | 17 | | + + + + + + | Tramadol | Confusion | Low | 12/31/19 | | | | | | 17 | | + + + + + + | Zonisamide | Rash, Angioedema | High | 02/13/20 | | | | | | 17 | | + + + + + + Current Medications + + +--------+---------+------+------+-------+ | Prescription | Sig. | Disp. | Refills | Star | End | Statu | | | | | | t | Date | s | | | | | | Date | | | + + +--------+---------+------+------+-------+ | cholecalciferol | Take 1,000 Units by | | | | | Activ | | (VITAMIN D-3) 1000 | mouth daily. | | | | | e | | units tablet | | | | | | | + + +--------+---------+------+------+-------+ | levothyroxine | Take 75 mcg by mouth | | | | | Activ | | (SYNTHROID) 75 MCG | every morning | | | | | e | | tablet | before breakfast. | | | | | | + + +--------+---------+------+------+-------+ | ferrous sulfate, | Take 65 mg of iron | | | | | Activ | | 65 FE, 324 (65 Fe) | by mouth 2 (two) | | | | | e | | MG EC tablet | times daily with | | | | | | | | meals. | | | | | | + + +--------+---------+------+------+-------+ | losartan (COZAAR) | Take 25 mg by mouth | | | | | Activ | | 25 MG tablet | daily. | | | | | e | + + +--------+---------+------+------+-------+ | | Take by mouth. | | | | | Activ | | [id number] | | | | | | e | | -COD PO | | | | | | | + + +--------+---------+------+------+-------+ | acetaminophen | Take 500 mg by mouth | | | | | Activ | | (TYLENOL) 500 MG | every 6 (six) hours | | | | | e | | tablet | as needed for Pain. | | | | | | + + +--------+---------+------+------+-------+ | spironolactone | Take 25 mg by mouth | | | | | Activ | | (ALDACTONE) 25 MG | 2 (two) times daily. | | | | | e | | tablet | | | | | | | + + +--------+---------+------+------+-------+ | gabapentin | Take 300 mg by mouth | | | | | Activ | | (NEURONTIN) 300 MG | 3 (three) times | | | | | e | | capsule | daily. | | | | | | + + +--------+---------+------+------+-------+ | cyclobenzaprine | Take 10 mg by mouth | | | | | Activ | | (FLEXERIL) 10 MG | 3 (three) times | | | | | e | | tablet | daily as needed for | | | | | | | | Muscle spasms. | | | | | | + + +--------+---------+------+------+-------+ | carvedilol (COREG) | Take 6.25 mg by | | | | | Activ | | 6.25 MG tablet | mouth 2 (two) times | | | | | e | | | daily with meals. | | | | | | + + +--------+---------+------+------+-------+ | tiZANidine | Take 1 tablet by | 30 | 4 | 04/0 | | Activ | | (ZANAFLEX) 4 MG | mouth nightly. | tablet | | 6/20 | | e | | tablet | | | | 18 | | | + + +--------+---------+------+------+-------+ Active Problems + + + | Problem | Noted Date | + + + | Hyponatremia | 05/12/2017 | + + + | Essential hypertension, benign | 05/12/2017 | + + + | Class 3 obesity due to excess calories without serious | 05/12/2017 | | comorbidity with body mass index (BMI) of 40.0 to 44.9 in adult | | | (HCC) | | + + + | Bilateral lower extremity edema | 05/12/2017 | + + + Encounters +--------+ + + + + | Date | Type | Specialty | Care Team | Description | +--------+ + + + + | 10/02/ | Documentati | | [facility] Orourke | Other (Chart Note | | 2018 | on Only | | N[facility] [place] | 01/25/17) | +--------+ + + + + from Last 3 Months Family History + + +------+ + | [...] | | | + +-------+ +--------+------+ + +---+---+---+ | Smokeless Tobacco: | | | | | Never Used | | | | + +---+---+---+ + + +---------+ + | Alcohol Use | Drinks/We | oz/Week | Comments | | | ek | | | + + +---------+ + | No | | | | + + +---------+ + + + + | Sex Assigned at | Date Recorded | | | | + + + | Not on file | | + + + Last Filed Vital Signs + + + + | Vital Sign | Reading | Time Taken | + + + + | Blood Pressure | 126/84 | 05/12/2017 2:26 PM PDT | + + + + | Pulse | 75 | 05/12/2017 2:26 PM PDT | + + + + | Temperature | 36.3 C (97.4 F) | 05/12/2017 2:26 PM PDT | + + + + | Respiratory Rate | - | - | + + + + | Oxygen Saturation | 96% | 05/12/2017 2:26 PM PDT | + + + + | Inhaled Oxygen | - | - | | Concentration | | | + + + + | Weight | 105.7 kg (233 lb) | 05/12/2017 2:26 PM PDT | + + + + | Height | 157.5 cm (5' 2") | 05/12/2017 2:26 PM PDT | + + + + | Body Mass Index | 42.62 | 05/12/2017 2:26 PM PDT | + + + + Plan of Treatment + + + + + | Health Maintenance | Due Date | Last Done | Comments | + + + + + | Vaccine: | | | | | Dtap/Tdap/Td (1 - | 8 | | | | Tdap) | | | | + + + + + | Vaccine: | | | | | Pneumococcal 19-64 | 8 | | | | (PPSV23 only) Medium | | | | | Risk (1 of 1 - | | | | | PPSV23) | | | | + + + + + | Cervical Cancer | | | | | Screening (Pap) | 9 | | | + + + + + | Breast Cancer | | | | | Screening | 9 | | | | (Mammogram) | | | | + + + + + | Colon Cancer | | | | | Screening | 9 | | | | (Colonoscopy) | | | | + + + + + | Vaccine: Influenza | | | | | (#1) | 8 | | | + + + + + Results Not on filefrom Last 3 Months Insurance + +--------+ +------+-------+ + | Payer | Benefi | Subscriber | Type | Phone | Address | | | t Plan | ID | | | | | | / | | | | | | | Group | | | | | + +--------+ +------+-------+ + | MEDICAID | [employer] | [id number] | | | [address] | | | [place] | | | | [place] | | | [place] | | | | [phone] | | | PATHOLOGY SECRETARY | | | | | + +--------+ +------+-------+ + + +--------+ +--------+ + + | Guarantor Name | Accoun | Relation to | Date | Phone | Billing Address | | | t Type | Patient | of | | | | | | | | | | + +--------+ +--------+ + + | ROXY LOJA | Person | Self [birth year] Home: | [address] | | | al/Fam | | [phone] | [phone] | [place] | | | [place] | | | [phone] | + +--------+ +--------+ + +
--- OUTSIDE RECORDS SUMMARY | ~2017-10-19 | XMS | Encounter Summary ---
Demographics + + + | Address | [address] | | | [place] [address] | + + + | Home Phone | | + + + | Preferred Language | Unknown | + + + | Marital Status | Single | + + + | Roman Catholic Affiliation | Unknown | + + + | Race | Unknown | + + + | Ethnic Group | Unknown | + + + Author + + + | Author | [facility] | + + + | Organization | [facility] | + + + | Address | Unknown | + + + | Phone | Unavailable | + + + Support + + +---------+ + | Name | Relationship | Address | Phone | + + +---------+ + | Aviva Araujo | ECON | Unknown | | + + +---------+ + Care Team Providers + +------+ + | Care Contact Representative Name | Role | Phone | + +------+ + | Oanh Hoffman NP | PCP | | + +------+ + Reason for Visit +--------+ + | Reason | Comments | +--------+ + | Other | Chart Note 01/25/17 | +--------+ + Encounter Details +--------+ + + + + | Date | Type | Department | Care Team | Description | +--------+ + + + + | 10/02/ | Documentati | [facility] | [facility] | Other (Chart Note | | 2018 | on Only | [facility] | NEREYDA Lafleur | 01/25/17) | | | | [address] | | | | | | [place] | | | | | | [address] | | | | | | [phone] | | | +--------+ + + + [...] on file | | + + + as of this encounter Plan of Treatment Not on fileas of this encounter Visit Diagnoses Not on filein this encounter"
--- OUTSIDE RECORDS SUMMARY | ~2017-10-19 | XMS | Clinical Summary ---
Demographics + + + | Address | [address] | | | [place] [address] | + + + | Home Phone | | + + + | Preferred Language | Unknown | + + + | Marital Status | Single | + + + | Jainism Affiliation | Unknown | + + + | Race | Unknown | + + + | Ethnic Group | Unknown | + + + Author + + + | Author | [facility] | + + + | Organization | [facility] | + + + | Address | Unknown | + + + | Phone | Unavailable | + + + Support + + +---------+ + | Name | Relationship | Address | Phone | + + +---------+ + | Aviva Araujo | ECON | Unknown | | + + +---------+ + Care Team Providers + +------+ + | Care Operator Assistant I Cementing Name | Role | Phone | + [...] | | | | Activ | | [id number] | | | | | | e [...] +------+-------+ + | MEDICAID | [employer] | [id number] | | | [address] | | | [place] | | | | [place] | | | [place] | | | | [address] | | | MANAGER CUSTOMER SERVICE | | | | | + +--------+ [...] | | al/Fam | | [phone] | [phone] | [place] | | | [place] | | | [phone] | + +--------+ +--------+ + +
--- OUTSIDE RECORDS SUMMARY | ~2017-10-19 | XMS | Encounter Summary ---
Demographics + + + | Address | [address] | | | [place] [address] | + + + | Home Phone | | + + + | Preferred Language | Unknown | + + + | Marital Status | Single | + + + | Hinduism Affiliation | Unknown | + + + | Race | Unknown | + + + | Ethnic Group | Unknown | + + + Author + + + | Author | [facility] | + + + | Organization | [facility] | + + + | Address | Unknown | + + + | Phone | Unavailable | + + + Support + + +---------+ + | Name | Relationship | Address | Phone | + + +---------+ + | Aviva Araujo | ECON | Unknown | | + + +---------+ + Care Team Providers + +------+ + | Care Hose Suspender Cutter Name | Role | Phone | [...] [place] | | | | | | [address] | | | | | | [phone] | | | +--------+ + + + [...]
[~2017-10-19 03:26] MED LIST changes: +COZAAR100 MG PO; -LOSARTAN POTASS25 MG PO; -SYNTHROID50 MCG PO; +SYNTHROID88 MCG PO
[2017-10-19] MEDS ORDERED: BACLOFEN10 MG PO (03:37)
[2017-10-19] MEDS ORDERED: VERAPAMIL HCL80 MG PO (03:39)
== END 2017-10-19 04:27 | disposition home or self-care (01) ==
LOC: ED 03:26
DX: G89.29 Other chronic pain (principal); M54.5 Low back pain; I10 Essential (primary) hypertension; E03.9 Hypothyroidism, unspecified; G43.909 Migraine, unspecified, not intractable, without status migrainosus; F17.200 Nicotine dependence, unspecified, uncomplicated
CPT/HCPCS: 81001; 99283

== ENCOUNTER 2019-08-29 19:30 | Emergency (ER) | payer OTHER ==
[~2019-08-29] VITALS: Ht 157.5 cm; Wt 103.0 kg
--- OUTSIDE RECORDS SUMMARY | ~2019-08-29 | XMS | Encounter Summary ---
Demographics + + + | Address | [address] | | | [place] [address] | + + + | Home Phone | | + + + | Preferred Language | Unknown | + + + | Marital Status | Single | + + + | Christianity Affiliation | Unknown | + + + | Race | Unknown | + + + | Ethnic Group | Unknown | + + + Author + + + | Author | [facility] | | | and [place] | + + + | Organization | [facility] | | | and [place] | + + + | Address | Unknown | + + + | Phone | Unavailable | + + + Support + + +---------+ + | Name | Relationship | Address | Phone | + + +---------+ + | Lynn Irmaeli | ECON | Unknown | Unavailable | + + +---------+ + Care Team Providers + +------+ + | Care Rubber Tire Curer Name | Role | Phone | + +------+ + | Gomez Cabrales | PCP | | + +------+ + Encounter Details +--------+ + + + + | Date | Type | Department | Care Team | Description | +--------+ + + + + | 05/05/ | Orders Only | [facility] | Norris Calzada MD | | | 2018 | | [place]PHROLOG[place] | [address] [place] | | | | | [address] [place] | [address] [place], [place] | | | | | [address] [place], [place] | [id number] | | | | | [phone] | | | | | | [phone] | | | +--------+ + + + [...] | + +--------+ + + + | URINALYSIS WITH | Routin | 05/05/2017 | | Results for this | | MICROSCOPIC IF | e | 10:46 AM | | procedure are in the | | INDICATED | | PDT | | results section. | + +--------+ + + + | BASIC METABOLIC | Routin | 05/05/2017 | | Results for this | | PANEL | e | 10:46 AM | | procedure are in the | | | | PDT | | results section. | + +--------+ + + + documented in this encounter Results Urinalysis with Microscopic if Indicated (05/05/2017 10:46 AM PDT) + + + + + + | Component | Value | Ref Range | Performed | Pathologist | | | | | At | Signature | + + + + + + | Color | Yellow | | EXTERNAL | | | | | | LAB | | + + + + + + | Clarity | Clear | | EXTERNAL | | | | | | LAB | | + + + + + + | Spec Grav, | 1.005 | 1.005 - 1.030 | EXTERNAL | | | Fluid | | | LAB | | + + + + + + | Leukocyte | Comment: 25 | | EXTERNAL | | | Esterase, | | | LAB | | | Urine | | | | | + + + + + + | Nitrite, | Negative | | EXTERNAL | | | Urine | | | LAB | | + + + + + + | Urobilinoge | Normal | | EXTERNAL | | | n, Urine | | | LAB | | + + + + + + | Total | Negative | | EXTERNAL | | | Protein | | | LAB | | + + + + + + | pH, Urine | 5 | 5 - 9 | EXTERNAL | | | | | | LAB | | + + + + + + | Blood, | Negative | | EXTERNAL | | | Urine | | | LAB | | + + + + + + | Ketones | Negative | | EXTERNAL | | | | | | LAB | | + + + + + + | Bilirubin, | Negative | | EXTERNAL | | | Urine | | | LAB | | + + + + + + | Glucose, | Negative | | EXTERNAL | | | Urine | | | LAB | | + + + + + + + + | Specimen | + + | Urine specimen | | (specimen) | + + + +---------+ + + | Performing | Address | City/State/Zipcode | Phone Number | | Organization | | | | + +---------+ + + | EXTERNAL LAB | | | | + +---------+ + + Basic Metabolic Panel (05/05/2017 10:46 AM PDT) + + + + + + | Component | Value | Ref Range | Performed | Pathologist | | | | | At | Signature | + + + + + + | Glucose, | 97 | 70 - 100 mg/dL | EXTERNAL | | | Fasting | | | LAB | | + + + + + + | BUN | 9 | 6 - 23 mg/dL | EXTERNAL | | | | | | LAB | | + + + + + + | Creatinine | 0.66 (A) | 0.7 - 1.33 | EXTERNAL | | | | | mg/dL | LAB | | + + + + + + | BUN/Creatin | 13.6 | 6.0 - 28.6 | EXTERNAL | | | ine Ratio | | | LAB | | + + + + + + | Calcium | 9.1 | 8.4 - 10.2 | EXTERNAL | | | | | mg/dL | LAB | | + + + + + + | Na | 132 | 132 - 143 | EXTERNAL | | | | | mmol/L | LAB | | + + + + + + | K | 4.3 | 3.6 - 5.1 | EXTERNAL | | | | | mmol/L | LAB | | + + + + + + | Cl | 101 | 95 - 112 mmol/L | EXTERNAL | | | | | | LAB | | + + + + + + | CO2 | 25 | 19 - 31 mmol/L | EXTERNAL | | | | | | LAB | | + + + + + + | Anion Gap | 10.3 | 7 - 21 mmol/L | EXTERNAL | | | | | | LAB | | + + + + + + | Estimated | 92 | mg/dL | EXTERNAL | | | GFR | | | LAB | | + + + + + + + + | Specimen [...]
--- OUTSIDE RECORDS SUMMARY | ~2019-08-29 | XMS | Clinical Summary ---
Demographics + + + | Address | [address] | | | [place] [address] | + + + | Home Phone | | + + + | Preferred Language | Unknown | + + + | Marital Status | Single | + + + | Baptism Affiliation | Unknown | + + + | Race | Unknown | + + + | Ethnic Group | Unknown | + + + Author + + + | Author | [facility] | | | and [place] | + + + | Organization | [facility] | | | and [place] | [...] Team Providers + +------+ + | Care Psychology Fellow Name | Role | Phone | + +------+ + | Gomez Cabrales | PCP | | + +------+ + Allergies + + + + + + | Active Allergy | Reactions | Severity | Noted | Comments | | | | | Date | | + + + + + + | Aspirin | Anaphylaxis | High | 12/31/19 | | | | | | 17 | | + + + + + + | Codeine | GI Upset | Low | 12/31/19 | GI distress | | | | | 17 | | + + + + + + | Topiramate | Rash | Medium | 01/28/20 | Rash | | | | | 17 | | + + + + + + | Tramadol | Hallucination | Low | 12/31/19 | Confusion | | | | | 17 | | + + + + + + | Zonisamide | Rash, Swelling | High | 02/13/20 | Rash | | | | | 17 | | + + + + + + Medications + + + +---------+------+------+-------+ | Medication | Sig | Dispensed | Refills | Star | End | Statu | | | | | | t | Date | s | | | | | | Date | | | + + + +---------+------+------+-------+ | cholecalciferol | Take 1,000 Units by | | 0 | 11/0 | | Activ | | (CHOLECALCIFEROL) | mouth daily. | | | 6/20 | | e | | 1000 units TABS | | | | 17 | | | + + + +---------+------+------+-------+ | levothyroxine | Take 100 mcg by | | 0 | 11/0 | | Activ | | (SYNTHROID) 75 MCG | mouth every morning | | | 6/20 | | e | | tablet | before breakfast. | | | 17 | | | + + + +---------+------+------+-------+ | ferrous sulfate | Take 65 mg of iron | | 0 | 11/0 | | Activ | | 324 (65 Fe) MG EC | by mouth 2 (two) | | | 6/20 | | e | | tablet | times daily with | | | 17 | | | | | meals. | | | | | | + + + +---------+------+------+-------+ | losartan (COZAAR) | Take 25 mg by mouth | | 0 | 11/0 | | Activ | | 25 mg tablet | daily. | | | 6/20 | | e | | | | | | 17 | | | + + + +---------+------+------+-------+ | acetaminophen | Take 500 mg by mouth | | 0 | 11/0 | | Activ | | (TYLENOL) 500 mg | every 6 (six) hours | | | 6/20 | | e | | tablet | as needed for Pain. | | | 17 | | | + + + +---------+------+------+-------+ | spironolactone | Take 25 mg by mouth | | 0 | 12/0 | | Activ | | (ALDACTONE) 25 mg | 2 (two) times daily. | | | 4/20 | | e | | tablet | | | | 17 | | | + + + +---------+------+------+-------+ | gabapentin | Take 300 mg by mouth | | 0 | 12/0 | | Activ | | (NEURONTIN) 300 mg | 3 (three) times | | | 4/20 | | e | | capsule | daily. | | | 17 | | | + + + +---------+------+------+-------+ | cyclobenzaprine | Take 10 mg by mouth | | 0 | 12/0 | | Activ | | (FLEXERIL) 10 mg | 3 (three) times | | | 4/20 | | e | | tablet | daily as needed for | | | 17 | | | | | Muscle spasms. | | | | | | + + + +---------+------+------+-------+ | carvedilol (COREG) | Take 25 mg by mouth | | 0 | 12/0 | | Activ | | 6.25 mg tablet | 2 (two) times daily | | | 4/20 | | e | | | with meals. | | | 17 | | | + + + +---------+------+------+-------+ | baclofen | Take 10 mg by mouth | | 0 | 10/0 | | Activ | | (LIORESAL) 10 mg | 3 (three) times | | | 8/20 | | e | | tablet | daily. | | | 18 | | | + + + +---------+------+------+-------+ | verapamil (CALAN) | Take 100 mg by mouth | | 0 | 10/0 | | Activ | | 80 mg tablet | 3 (three) times | | | 8/20 | | e | | | daily. | | | 18 | | | + + + +---------+------+------+-------+ | | Take 1 tablet by | 20 | 2 | 04/1 | | Activ | | butalbital-acetamino | mouth every 4 (four) | tablet | | 5/20 | | e | | phen-caffeine | hours as needed for | | | 19 | | | | 50-325-40 mg per | Pain. May refill | | | | | | | tablet | once every 30 days. | | | | | | | | Limit to 2-3 days | | | | | | | | per week at most. | | | | | | + + + +---------+------+------+-------+ Active Problems + + + | Problem | Noted Date | + + + | Hyponatremia | 05/12/2017 | + + + | Essential hypertension, benign | 05/12/2017 | + + + | Class 3 obesity due to excess calories without serious | 05/12/2017 | | comorbidity with body mass index (BMI) of 40.0 to 44.9 in adult | | + + + | Bilateral lower extremity edema | 05/12/2017 | + + + Family History + + +------+ + | Medical History | Relation | Name | Comments | + + +------+ + | Migraines | Daughter | | | + + +------+ + | Migraines | Mother | | | + + +------+ + | Migraines | Sister | | | + + +------+ + | Migraines | Son | | | + + +------+ + + +------+--------+ + | Relation | Name | Status | Comments | + +------+--------+ + | Daughter | | | | + +------+--------+ + | Daughter | | | | + +------+--------+ + | Mother | | | | + +------+--------+ + | Mother | | | | + +------+--------+ + | Sister | | | | + +------+--------+ + | Sister | | | | + +------+--------+ + | Son | | | | + +------+--------+ + | Son | | | | + +------+--------+ + Social History + +-------+ +--------+------+ | Tobacco Use | Types | Packs/Day | Years | Date | | | | | Used | | + +-------+ +--------+------+ | Current Every Day | | 0.5 | | | | Smoker | | | | | + +-------+ +--------+------+ + + + | Sex Assigned at | Date Recorded | | | | + + + | Not on file | | + + + Last Filed Vital Signs + + + + + | Vital Sign | Reading | Time Taken | Comments | + + + + + | Blood Pressure | 146/79 | 06/08/2018 2:14 PM | | | | | PDT | | + + + + + | Pulse | 57 | 06/08/2018 2:14 PM | | | | | PDT | | + + + + + | Temperature | 36.3 C (97.4 F) | 05/12/2017 2:38 PM | | | | | PDT | | + + + + + | Respiratory Rate | - | - | | + + + + + | Oxygen Saturation | - | - | | + + + + + | Inhaled Oxygen | - | - | | | Concentration | | | | + + + + + | Weight | 89.6 kg (197 lb 8 | 06/08/2018 2:14 PM | | | | oz) | PDT | | + + + + + | Height | 157.5 cm (5' 2") | 06/08/2018 2:14 PM | | | | | PDT | | + + + + + | Body Mass Index | 36.12 | 06/08/2018 2:14 PM | | | | | PDT | | + + + + + Plan of Treatment + + +-------+ + | Health Maintenance | Due Date | Last | Comments | | | | Done | | + + +-------+ + | Hepatitis C | | | | | Screening | 9 | | | + + +-------+ + | Vaccine: | | | | | Pneumococcal 19-64 | 5 | | | | (1 of 1 - PPSV23) | | | | + + +-------+ + | Vaccine: | | | | | Dtap/Tdap/Td (1 - | 8 | | | | Tdap) | | | | + + +-------+ + | Cervical Cancer | | | | | Screening (Pap) | 9 | | | + + +-------+ + | Colorectal Cancer | | | | | Screening | 9 | | | | (Colonoscopy) | | | | + + +-------+ + | Vaccine: Zoster (1 | | | | | of 2) | 9 | | | + + +-------+ + | Breast Cancer | | | | | Screening | 4 | | | + + +-------+ + | Vaccine: Influenza | | | | | (Season Ended) | 0 | | | + + +-------+ + Results Not on filefrom Last 3 Months
--- OUTSIDE RECORDS SUMMARY | ~2019-08-29 | XMS | Encounter Summary ---
Demographics + + + | Address | [address] | | | [place] [address] | + + + | Home Phone | | + + + | Preferred Language | Unknown | + + + | Marital Status | Single | + + + | Presybeterian Affiliation | Unknown | + + + | Race | Unknown | + + + | Ethnic Group | Unknown | + + + Author + + + | Author | [facility] | | | and [place] | + + + | Organization | [facility] | | | and [place] | [...] Team Providers + +------+ + | Care Manager Forms Name | Role | Phone | + +------+ + | Gomez Cabrales | PCP | | + +------+ + Encounter Details +--------+ + + + + | Date | Type | Department | Care Team | Description | +--------+ + + + + | 10/10/ | Orders Only | [facility] | Conversion | | | 2016 | | NEPHROLOG[facility] [place] | Transaction, | | | | | [address] | Provider Unknown | | | | | [address] [place] | | | | | | [address] | (Fax) | | | | | [phone] | | | +--------+ + + + [...] + + | SODIUM | Routin | 03/15/2017 | | Results for this | | | e | 10:15 AM | | procedure are in the | | | | PST | | results section. | + +--------+ + + + | HEMOGLOBIN AND | Routin | 02/11/2017 | | Results for this | | HEMATOCRIT | e | 11:56 AM | | procedure are in the | | | | PST | | results section. | + +--------+ + + + | SODIUM | Routin | 02/11/2017 | | Results for this | | | e | 11:56 AM | | procedure are in the | | | | PST | | results section. | + +--------+ + + + | BASIC METABOLIC | Routin | 10/10/2016 | | Results for this | | PANEL | e | 11:12 AM | | procedure are in the | | | | PDT | | results section. | + +--------+ + + + | EXTERNAL LAB: CBC | Routin | 09/09/2016 | | Results for this | | | e | 12:00 AM | | procedure are in the | | | | PDT | | results section. | + +--------+ + + + | LIPID PANEL | Routin | 09/09/2016 | | Results for this | | | e | 12:00 AM | | procedure are in the | | | | PDT | | results section. | + +--------+ + + + | TSH | Routin | 09/09/2016 | | Results for this | | | e | 12:00 AM | | procedure are in the | | | | PDT | | results section. | + +--------+ + + + | HEMOGLOBIN A1C | Routin | 09/09/2016 | | Results for this | | | e | 12:00 AM | | procedure are in the | | | | PDT | | results section. | + +--------+ + + + | COMPREHENSIVE | Routin | 09/09/2016 | | Results for this | | METABOLIC PANEL | e | 12:00 AM | | procedure are in the | | | | PDT | | results section. | + +--------+ + + + documented in this encounter Results Sodium (03/15/2017 10:15 AM PST) + + | Specimen | + + | Blood specimen | | (specimen) | + + + + + | Narrative | Performed At | + + + | Sodium: 131 Range: 132-143 | EXTERNAL LAB | + + + + +---------+ + + | Performing | Address | City/State/Zipcode | Phone Number | | Organization | | | | + +---------+ + + | EXTERNAL LAB | | | | + +---------+ + + Hemoglobin and Hematocrit (02/11/2017 11:56 AM PST) + +-------+ + + + | Component | Value | Ref Range | Performed | Pathologist | | | | | At | Signature | + +-------+ + + + | Hemoglobin | 14 | 12 - 16 g/dL | EXTERNAL | | | | | | LAB | | + +-------+ + + + | Hematocrit, | 40.3 | 35 - 45 % | EXTERNAL | | | POC | | | LAB | | + +-------+ + + + + + | Specimen | + + | | + + + +---------+ + + | Performing | Address | City/State/Zipcode | Phone Number | | Organization | | | | + +---------+ + + | EXTERNAL LAB | | | | + +---------+ + + Sodium (02/11/2017 11:56 AM PST) + + | Specimen | + + | Blood specimen | | (specimen) | + + + + + | Narrative | Performed At | + + + | Sodium: 136 Range: 132-143 | EXTERNAL LAB | + + + + +---------+ + + | Performing | Address | City/State/Zipcode | Phone Number | | Organization | | | | + +---------+ + + | EXTERNAL LAB | | | | + +---------+ + + Basic Metabolic Panel (10/10/2016 11:12 AM PDT) + + + + + + | Component | Value | Ref Range | Performed | Pathologist | | | | | At | Signature | + + + + + + | Glucose, | 89 | 70 - 100 mg/dL | EXTERNAL | | | Fasting | | | LAB | | + + + + + + | BUN | 9 | 6 - 23 mg/dL | EXTERNAL | | | | | | LAB | | + + + + + + | Creatinine | 0.58 (A) | 0.7 - 1.33 | EXTERNAL | | | | | mg/dL | LAB | | + + + + + + | BUN/Creatin | 15.5 | 6.0 - 28.6 | EXTERNAL | | | ine Ratio | | | LAB | | + + + + + + | Calcium | 9.2 | 8.4 - 10.2 | EXTERNAL | | | | | mg/dL | LAB | | + + + + + + | Na | 122 (A) | 132 - 143 | EXTERNAL | | | | | mmol/L | LAB | | + + + + + + | K | 3.8 | 3.6 - 5.1 | EXTERNAL | | | | | mmol/L | LAB | | + + + + + + | Cl | 85 (A) | 95 - 112 mmol/L | EXTERNAL | | | | | | LAB | | + + + + + + | CO2 | 24 | 19 - 31 mmol/L | EXTERNAL | | | | | | LAB | | + + + + + + | Anion Gap | 16.8 | 7 - 21 mmol/L | EXTERNAL | | | | | | LAB | | + + + + + + | Estimated | 107 | mg/dL | EXTERNAL | | | [...] | | | + +---------+ + + External Lab: CBC (09/09/2016 12:00 AM PDT) + + + + + + | Component | Value | Ref Range | Performed | Pathologist | | | | | At | Signature | + + + + + + | WBC | 5.7 | 4.5 - 11.0 10 | EXTERNAL | | | | | | LAB | | + + + + + + | Red Blood | 3.66 (A) | 3.8 - 5.1 10 | EXTERNAL | | | Cells | | | LAB | | | Counted | | | | | + + + + + + | Hemoglobin | 12.7 | 12 - 16 g/dL | EXTERNAL | | | | | | LAB | | + + + + + + | Hematocrit, | 36.3 | 35 - 45 % | EXTERNAL | | | POC | | | LAB | | + + + + + + | MCV | 98.9 | 81 - 99 fL | EXTERNAL | | | | | | LAB | | + + + + + + | MCH | 35 (A) | 27 - 33 pg | EXTERNAL | | | | | | LAB | | + + + + + + | MCHC | 35 | 30 - 36 g/dL | EXTERNAL | | | | | | LAB | | + + + + + + | Platelet | 260 | 140 - 440 K/ L | EXTERNAL | | | Count | | | LAB | | | Plasma | | | | | + + + + + + | RDW-CV | 15 | 10.5 - 15.0 % | EXTERNAL | | | | | | LAB | | + + + + + + | MPV | | fL | EXTERNAL | | | | | | LAB | | + + + + + + | Differentia | | | EXTERNAL | | | l Type | | | LAB | | + + + + + + | % Segmented | | % | EXTERNAL | | | | | | LAB | | | Neutrophils | | | | | + + + + + + | % | | % | EXTERNAL | | | Lymphocytes | | | LAB | | + + + + + + | % Monocytes | | % | EXTERNAL | | | | | | LAB | | + + + + + + | % | | % | EXTERNAL | | | Eosinophils | | | LAB | | + + + + + + | % Basophils | | % | EXTERNAL | | | | | | LAB | | + + + + + + | Absolute | | / L | EXTERNAL | | | Segmented | | | LAB | | | Neutrophils | | | | | + + + + + + | Absolute | | / L | EXTERNAL | | | Lymphocytes | | | LAB | | + + + + + + | Absolute | | / L | EXTERNAL | | | Monocytes | | | LAB | | + + + + + + | Absolute | | / L | EXTERNAL | | | Eosinophils | | | LAB | | + + + + + + | Absolute | | / L | EXTERNAL | | | Basophils | | | LAB | | + + + + + + + + | Specimen | + + | Blood specimen | | (specimen) | + + + +---------+ + + | Performing | Address | City/State/Zipcode | Phone Number | | Organization | | | | + +---------+ + + | EXTERNAL LAB | | | | + +---------+ + + TSH (09/09/2016 12:00 AM PDT) + +-------+ + + + | Component | Value | Ref Range | Performed | Pathologist | | | | | At | Signature | + +-------+ + + + | TSH | 1.17 | 0.27 - 4.20 | EXTERNAL | | | | | uIU/mL | LAB | | + +-------+ + + + + + | Specimen | + + | Blood specimen | | (specimen) | + + + +---------+ + + | Performing | Address | City/State/Zipcode | Phone Number | | Organization | | | | + +---------+ + + | EXTERNAL LAB | | | | + +---------+ + + Hemoglobin A1C (09/09/2016 12:00 AM PDT) + +-------+ + + + | Component | Value | Ref Range | Performed | Pathologist | | | | | At | Signature | + +-------+ + + + | Hemoglobin | 5.1 | % | EXTERNAL | | | A1c | | | LAB | | + +-------+ + + + + + | Specimen | + + | Blood specimen | | (specimen) | + + + +---------+ + + | Performing | Address | City/State/Zipcode | Phone Number | | Organization | | | | + +---------+ + + | EXTERNAL LAB | | | | + +---------+ + + Lipid Panel (09/09/2016 12:00 AM PDT) + +-------+ + + + | Component | Value | Ref Range | Performed | Pathologist | | | | | At | Signature | + +-------+ + + + | Cholesterol | 225 | mg/dL | EXTERNAL | | | | | | LAB | | + +-------+ + + + | Triglycerid | 96 | 30 - 150 mg/dL | EXTERNAL | | | es | | | LAB | | + +-------+ + + + | HDL | 72.3 | mg/dl | EXTERNAL | | | | | | LAB | | + +-------+ + + + | LDL, | 134 | mg/dL | EXTERNAL | | | Calculated | | | LAB | | + +-------+ + + + | LDl/HDL | | | EXTERNAL | | | Ratio | | | LAB | | + +-------+ + + + | Chol/HDL | 3.1 | | EXTERNAL | | | Ratio | | | LAB | | + +-------+ + + + | VLDL | 19 | 4 - 40 mg/dL | EXTERNAL | | | | | | LAB | | + +-------+ + + + | Non HDL | 153 | | EXTERNAL | | | Chol. | | | LAB | | | (LDL+VLDL) | | | | | + +-------+ + + + + + | Specimen | + + | Blood specimen | | (specimen) | + + + +---------+ + + | Performing | Address | City/State/Zipcode | Phone Number | | Organization | | | | + +---------+ + + | EXTERNAL LAB | | | | + +---------+ + + Comprehensive Metabolic Panel (09/09/2016 12:00 AM PDT) + + + + + + | Component | Value | Ref Range | Performed | Pathologist | | | | | At | Signature | + + + + + + | Glucose, | 82 | 70 - 100 mg/dL | EXTERNAL | | | Fasting | | | LAB | | + + + + + + | BUN | 12 | 6 - 23 mg/dL | EXTERNAL | | | | | | LAB | | + + + + + + | Creatinine | 0.67 (A) | 0.7 - 1.33 | EXTERNAL | | | | | mg/dL | LAB | | + + + + + + | BUN/Creatin | 17.9 | 6.0 - 28.6 | EXTERNAL | | | ine Ratio | | | LAB | | + + + + + + | Calcium | 9.2 | 8.4 - 10.2 | EXTERNAL | | | | | mg/dL | LAB | | + + + + + + | Protein, | 6.6 | 6.0 - 8.0 g/dL | EXTERNAL | | | Total | | | LAB | | + + + + + + | Albumin | 4.2 | 3.5 - 5.0 | EXTERNAL | | | | | | LAB | | + + + + + + | Globulin | 2.4 | 1.8 - 3.5 | EXTERNAL | | | | | | LAB | | + + + + + + | A/G Ratio | 1.8 | 1.1 - 2.4 | EXTERNAL | | | | | | LAB | | + + + + + + | Bilirubin | 0.3 | 0.0 - 1.2 mg/dL | EXTERNAL | | | Total | | | LAB | | + + + + + + | ALP, | 65 | 31 - 130 | EXTERNAL | | | External | | | LAB | | + + + + + + | ALT | 10 | 7 - 52 U/L | EXTERNAL | | | | | | LAB | | + + + + + + | AST | 12 (A) | 13 - 39 U/L | EXTERNAL | | | | | | LAB | | + + + + + + | Na | 126 (A) | 132 - 143 | EXTERNAL | | | | | mmol/L | LAB | | + + + + + + | K | 3.9 | 3.6 - 5.1 | EXTERNAL | | | | | mmol/L | LAB | | + + + + + + | Cl | 89 (A) | 95 - 112 mmol/L | EXTERNAL | | | | | | LAB | | + + + + + + | CO2 | 28 | 19 - 31 mmol/L | EXTERNAL | | | | | | LAB | | + + + + + + | Anion Gap | 12.9 | 7 - 21 mmol/L | EXTERNAL | | | | | | LAB | | + + + + + + | Estimated | 91 | mg/dL | EXTERNAL | | | [...]
--- OUTSIDE RECORDS SUMMARY | ~2019-08-29 | XMS | Encounter Summary ---
Demographics + + + | Address | [address] | | | [place] [address] | + + + | Home Phone | | + + + | Preferred Language | Unknown | + + + | Marital Status | Single | + + + | Restorationism Affiliation | Unknown | + + + | Race | Unknown | + + + | Ethnic Group | Unknown | + + + Author + + + | Author | [facility] | | | and [place] | + + + | Organization | [facility] | | | and [place] [...] Team Providers + +------+ + | Care Roofing Foreman Name | Role | Phone | + +------+ + | Gomez Cabrales | PCP | | + +------+ + Encounter Details +--------+ + + + + | Date | Type | Department | Care Team | Description | +--------+ + + + + | 05/16/ | Orders Only | [facility] | Norris Calzada MD | | | 2018 | | NEPHROLOGY [place] | [address] [place] | | | | | [address] [place] | [address] [place], [place] | | | | | [address] [place], [place] | [id number] | | | | | [address] | | | | | | [phone] | | | +--------+ + + + [...] | + +--------+ + + + | CORTISOL, AM | Routin | 05/16/2017 | | Results for this | | | e | 9:16 AM | | procedure are in the | | | | PDT | | results section. | + +--------+ + + + | ALDOSTERONE/RENIN | Routin | 05/16/2017 | | Results for this | | RATIO | e | 9:16 AM | | procedure are in the | | | | PDT | | results section. | + +--------+ + + + | METANEPHRINES, | Routin | 05/16/2017 | | Results for this | | FRACTIONATED, FREE, | e | 9:16 AM | | procedure are in the | | PLASMA | | PDT | | results section. | + +--------+ + + + | SODIUM, URINE, | Routin | 05/16/2017 | | Results for this | | RANDOM | e | 9:16 AM | | procedure are in the | | | | PDT | | results section. | + +--------+ + + + | TSH | Routin | 05/16/2017 | | Results for this | | | e | 9:16 AM | | procedure are in the | | | | PDT | | results section. | + +--------+ + + + | OSMOLALITY, SERUM | Routin | 05/16/2017 | | Results for this | | | e | 9:16 AM | | procedure are in the | | | | PDT | | results section. | + +--------+ + + + documented in this encounter Results Aldosterone/Renin Ratio (05/16/2017 9:16 AM PDT) + + | Specimen | + + | | + + + + + | Narrative | Performed At | + + + | Aldosterone: 21.1 Renin activity: 0.2 Ratio: 105.5 H | EXTERNAL LAB | + + + + +---------+ + + | Performing | Address | City/State/Zipcode | Phone Number | | Organization | | | | + +---------+ + + | EXTERNAL LAB | | | | + +---------+ + + Metanephrines, Fractionated, Free, Plasma (05/16/2017 9:16 AM PDT) + + | Specimen | + + | | + + + + + | Narrative | Performed At | + + + | Metanephrine: <0.10 Range: 0.0-0.49 Normetanephrine: 1.11 H | EXTERNAL LAB | | Range: 0.0-0.89 | | + + + + +---------+ + + | Performing | Address | City/State/Zipcode | Phone Number | | Organization | | | | + +---------+ + + | EXTERNAL LAB | | | | + +---------+ + + Cortisol, AM (05/16/2017 9:16 AM PDT) + + | Specimen | + + | | + + + + + | Narrative | Performed At | + + + | Cortisol: 13.94 Range: 6.02-18.4 | EXTERNAL LAB | + + + + +---------+ + + | Performing | Address | City/State/Zipcode | Phone Number | | Organization | | | | + +---------+ + + | EXTERNAL LAB | | | | + +---------+ + + Sodium, Urine, Random (05/16/2017 9:16 AM PDT) + +-------+ + + + | Component | Value | Ref Range | Performed | Pathologist | | | | | At | Signature | + +-------+ + + + | Sodium, | 84 | | EXTERNAL | | | Urine [...] | | + +---------+ + + TSH (05/16/2017 9:16 AM PDT) + + + + + + | Component | Value | Ref Range | Performed | Pathologist | | | | | At | Signature | + + + + + + | TSH | 5.52 (A) | 0.270 - 4.20 | EXTERNAL | | | | | uIU/mL | LAB | | + + + + + + + + | Specimen | + + | Blood specimen | | (specimen) | + + + +---------+ + + | Performing | Address | City/State/Zipcode | Phone Number | | Organization | | | | + +---------+ + + | EXTERNAL LAB | | | | + +---------+ + + Osmolality, Serum (05/16/2017 9:16 AM PDT) + +-------+ + + + | Component | Value | Ref Range | Performed | Pathologist | | | | | At | Signature | + +-------+ + + + | Osmolality, | 282 | 275 - 300 | EXTERNAL | | | Serum | | | LAB | | + [...]
--- OUTSIDE RECORDS SUMMARY | ~2019-08-29 | XMS | Encounter Summary ---
Demographics + + + | Address | [address] | | | [place] [address] | + + + | Home Phone | | + + + | Preferred Language | Unknown | + + + | Marital Status | Single | + + + | Mormon Affiliation | Unknown | + + + | Race | Unknown | + + + | Ethnic Group | Unknown | + + + Author + + + | Author | [facility] | | | and [place] | + + + | Organization | [facility] | | | and [place] | [...] Team Providers + +------+ + | Care Poiser Balance Name | Role | Phone | + [...] Transaction, | | | | | [address] | Provider Unknown | | | | | [place] | | | | | | [phone] | (Fax) | | | | | | | [...]
--- OUTSIDE RECORDS SUMMARY | ~2019-08-29 | XMS | Encounter Summary ---
Demographics + + + | Address | [address] | | | [place] [address] | + + + | Home Phone | | + + + | Preferred Language | Unknown | + + + | Marital Status | Single | + + + | Quaker Affiliation | Unknown | + + + | Race | Unknown | + + + | Ethnic Group | Unknown | + + + Author + + + | Author | [facility] | | | and [place] | + + + | Organization | [facility] | | | and [place] [...] Team Providers + +------+ + | Care Chief Librarian Branch Name | Role | Phone | + +------+ + | Gomez Cabrales | PCP | | + +------+ + Encounter Details +--------+ + + + + | Date | Type | Department | Care Team | Description | +--------+ + + + + | 01/27/ | Orders Only | [facility] | Conversion | | | 2017 | | CONVERSION DEP [address] | Transaction, | | | | | [address] | Provider Unknown | | | | | [place] | | | | | | [phone] | (Fax) | | | | | [...]
--- OUTSIDE RECORDS SUMMARY | ~2019-08-29 | XMS | Encounter Summary ---
Demographics + + + | Address | [address] | | | [place] [address] | + + + | Home Phone | | + + + | Preferred Language | Unknown | + + + | Marital Status | Single | + + + | Mandaeism Affiliation | Unknown | + + + | Race | Unknown | + + + | Ethnic Group | Unknown | + + + Author + + + | Author | [facility] | | | and [place] | + + + | Organization | [facility] | | | and [place] [...] Team Providers + +------+ + | Care Cotton Bag Sewer Name | Role | Phone | + +------+ + | Gomez Cabrales | PCP | | + +------+ + Encounter Details +--------+ + + + + | Date | Type | Department | Care Team | Description | +--------+ + + + + | 06/24/ | Orders Only | [facility] | Conversion | | | 2017 | | NEPHROLOGY [place] | Transaction, | | | | | [address] | Provider Unknown | | | | | [address] [place] | | | | | | [address] | (Fax) | | | | | [phone] | | | +--------+ + + + [...]
--- OUTSIDE RECORDS SUMMARY | ~2019-08-29 | XMS | Encounter Summary ---
Demographics + + + | Address | [address] | | | [place] [address] | + + + | Home Phone | | + + + | Preferred Language | Unknown | + + + | Marital Status | Single | + + + | Episcopalian Affiliation | Unknown | + + + | Race | Unknown | + + + | Ethnic Group | Unknown | + + + Author + + + | Author | [facility] | | | and [place] | + + + | Organization | [facility] | | | and [place] [...] Team Providers + +------+ + | Care Precast Concrete Ironworker Name | Role | Phone | + +------+ + | Goemz Cabrales | PCP | | + +------+ [...] [place] | | | | | | [phone] | (Fax) | | | | | [...]
--- OUTSIDE RECORDS SUMMARY | ~2019-08-29 | XMS | Encounter Summary ---
Demographics + + + | Address | [address] | | | [place] [address] | + + + | Home Phone | | + + + | Preferred Language | Unknown | + + + | Marital Status | Single | + + + | Church Affiliation | Unknown | + + + | Race | Unknown | + + + | Ethnic Group | Unknown | + + + Author + + + | Author | [facility] | | | and [place] | + + + | Organization | [facility] | | | and [place] | [...] Providers + +------+ + | Care Chief Risk Officer Name | Role | Phone | + +------+ + | Gomez Cabrales | PCP | | + +------+ + Encounter Details +--------+ + + + + | Date | Type | Department | Care Team | Description | +--------+ + + + + | 06/08/ | Orders Only | [facility] | Maritza Reeves, | | | 2018 | | NEUROLOGY [address] | [address] | | | | | [address] | [address] [facility] [address] | | | | | [place], [place] | [place] [address] | | | | | [address] | [phone] | | | | | [phone] | | | +--------+ + + + [...]
--- OUTSIDE RECORDS SUMMARY | ~2019-08-29 | XMS | Encounter Summary ---
Demographics + + + | Address | [address] | | | [place] [address] | + + + | Home Phone | | + + + | Preferred Language | Unknown | + + + | Marital Status | Single | + + + | Oriental Orthodox Affiliation | Unknown | + + + | Race | Unknown | + + + | Ethnic Group | Unknown | + + + Author + + + | Author | [facility] | | | and [place] | + + + | Organization | [facility] [...] Team Providers + +------+ + | Care Community Relations Representative Name | Role | Phone | + +------+ + | Gomez Cabrales | PCP | | + +------+ + Encounter Details +--------+ + + + + | Date | Type | Department | Care Team | Description | +--------+ + + + + | 04/18/ | Orders Only | [facility] | Conversion | | | 2017 | | NEPHROLOGY [place] | Transaction, | | | | | [address] | Provider Unknown | | | | | [address] [place] | | | | | | [phone] | (Fax) | | | | | [phone] | | | +--------+ + + + [...]
[~2019-08-29 19:30] MED LIST changes: +BACLOFEN10 MG PO; +LEVO-T100 MCG PO; +VERAPAMIL ER P100 MG PO; +VERAPAMIL HCL80 MG PO
--- OUTSIDE RECORDS SUMMARY | 2019-08-29 19:34 | XMS ---
PreManage Notification: LORA LUNA Security Web User Experience Strategist Events No recent Security Events currently on file CRITERIA MET - Group Notification - PDMP CARE PROVIDERS ALISHA AGUIRRE Physician Global Marketing Coordinator 10/20/2017-Current PHONE: [phone] Jaret has no Care Guidelines for this patient. ETania VISIT COUNT (12 MO.) 2 [facility] Jessica TOTAL 2 NOTE: Visits indicate total known visits. ED/UCC VISIT TRACKING (12 MO.) 08/29/2019 19:31 [facility] [place] TYPE: Emergency COMPLAINT: - DIZZINESS/TIREDNESS 09/07/2018 22:38 [facility] [place] TYPE: Emergency COMPLAINT: - RIGHT EAR PAIN DIAGNOSES: - Essential (primary) hypertension - Allergy status to narcotic agent status - Hypothyroidism, unspecified - Unspecified otitis externa, right ear - Otalgia, right ear - Allergy status to analgesic agent status - Other senior living (current) drug therapy - Allergy status to sulfonamides status - Allergy status to other drugs, medicaments and biological sub - Personal history of nicotine dependence - Acquired absence of other specified parts of digestive tract INPATIENT VISIT TRACKING (12 MO.) No inpatient visits to display in this time frame [email or web address]
[2019-08-30] MEDS ORDERED: POTASSIUM CHLO10 MEQ PO (02:00)
[2019-08-30] MEDS ORDERED: PERCOCET 5-3251 EACH PO (02:00)
--- NOTE | 2019-08-30 07:40 | EKG ---
[facility] [address] [facility] [place], [place] [address] Signed Normal sinus rhythm Prolonged QT Abnormal ECG No previous ECGs available Confirmed by FAHAD PATTERSON MD ([id number]) on 08/30/2019 7:40:31 AM Electronically Signed By: FAHAD PATTERSON MD 08/30/19 0740 PATIENT NAME: LORA LUNA Electrocardiogram DATE OF : 58 PHYSICIAN: FAHAD PATTERSON MD REPORT #: [id number] REPORT IS CONFIDENTIAL AND NOT TO BE RELEASED WITHOUT AUTHORIZATION
== END 2019-08-30 02:21 | disposition home or self-care (01) ==
LOC: ED 19:30
DX: E87.6 Hypokalemia (principal); M79.81 Nontraumatic hematoma of soft tissue; I10 Essential (primary) hypertension; E03.9 Hypothyroidism, unspecified; G43.909 Migraine, unspecified, not intractable, without status migrainosus; Z88.5 Allergy status to narcotic agent; Z88.2 Allergy status to sulfonamides; Z88.6 Allergy status to analgesic agent; Z79.899 Other long term (current) drug therapy
CPT/HCPCS: 36415; 74177; 80048; 80053; 81001; 83735; 84484; 85025; 85027; 85610; 85730; 86850; 86900; 86901; 93005; 93010; 96366; 96375; 96376; 99284-25; J1170; J3480; J7030; Q9967

== ENCOUNTER → 2019-11-30 | Emergency (ER) | payer OTHER ==
[~2019-11-30] MED LIST changes: +HYDROCHLOROTHIA25 MG PO; +LIPITOR20 MG PO; +ONDANSETRON ODT4 MG PO; +PAIN RELIEVER500 M1 PO; +PERCOCET 5-3251 EACH PO; +POTASSIUM CHLO10 MEQ PO
--- OUTSIDE RECORDS SUMMARY | ~2019-11-30 | XMS | Encounter Summary ---
Demographics + + + | Address | [address] | | | [place] [address] | + + + | Home Phone | | + + + | Preferred Language | Unknown | + + + | Marital Status | Single | + + + | Pentecostal Affiliation | Unknown | + + + | Race | White | + + + | Ethnic Group | Not or | + + + Author + + + | Author | [facility] | | | and [place] | + + + | Organization | [facility] | | | and [place] | + + + | Address | Unknown | + + + | Phone | Unavailable | + + + Support + + +---------+ + | Name | Relationship | Address | Phone | + + +---------+ + | Lynn Naegeli | ECON | Unknown | Unavailable | + + +---------+ + Care Team Providers + +------+ + | Care Club Former Name | Role | Phone | + +------+ + | Gomez Cabrales | PCP | | + +------+ + Encounter Details +--------+ + + + + | Date | Type | Department | Care Team | Description | +--------+ + + + + | 06/24/ | Orders Only | [facility] | Conversion | | | 2017 | | NEPHROLOGY [place] | Transaction, | | | | | [address] | Provider Unknown | | | | | [address] [place] | | | | | | [address] | (Fax) | | | | | [phone] | | | +--------+ + + + + Social History + +-------+ +--------+------+ | Tobacco Use | Types | Packs/Day | Years | Date | | | | | Used | | + +-------+ +--------+------+ | Never Assessed | | | | | + +-------+ +--------+------+ + + + | Sex Assigned at | Date Recorded | | | | + + + | Not on file | | + + + documented as of this encounter Plan of Treatment Not on filedocumented as of this encounter Procedures + +--------+ + + + | Procedure Name | Priori | Date/Time | Associated Diagnosis | Comments | | | ty | | | | + +--------+ + + + | LIPID PANEL | Routin | 06/24/2017 | | Results for this | | | e | 7:49 AM | | procedure are in the | | | | PDT | | results section. | + +--------+ + + + | VITAMIN D, | Routin | 06/24/2017 | | Results for this | | DEFICIENCY SCREEN | e | 7:49 AM | | procedure are in the | | (25-HYDROXY) | | PDT | | results section. | + +--------+ + + + | CREATINE | Routin | 06/24/2017 | | Results for this | | | e | 7:49 AM | | procedure are in the | | | | PDT | | results section. | + +--------+ + + + | SODIUM | Routin | 06/24/2017 | | Results for this | | | e | 7:49 AM | | procedure are in the | | | | PDT | | results section. | + +--------+ + + + documented in this encounter Results Creatine (06/24/2017 7:49 AM PDT) + + | Specimen | + + | | + + + + + | Narrative | Performed At | + + + | | EXTERNAL LAB | + + + + +---------+ + + | Performing | Address | City/State/Zipcode | Phone Number | | Organization | | | | + +---------+ + + | EXTERNAL LAB | | | | + +---------+ + + Vitamin D, Deficiency Screen (25-Hydroxy) (06/24/2017 7:49 AM PDT) + +--------+ + + + | Component | Value | Ref Range | Performed | Pathologist | | | | | At | Signature | + +--------+ + + + | Vit D, | 17 (A) | 30 - 100 | EXTERNAL | | | 25-Hydroxy | | | LAB | | + +--------+ + + + + + | Specimen | + + | Blood specimen | | (specimen) | + + + +---------+ + + | Performing | Address | City/State/Zipcode | Phone Number | | Organization | | | | + +---------+ + + | EXTERNAL LAB | | | | + +---------+ + + Sodium (06/24/2017 7:49 AM PDT) + + | Specimen | + + | Blood specimen | | (specimen) | + + + + + | Narrative | Performed At | + + + | Sodoium: 134 Range: 132-143 | EXTERNAL LAB | + + + + +---------+ + + | Performing | Address | City/State/Zipcode | Phone Number | | Organization | | | | + +---------+ + + | EXTERNAL LAB | | | | + +---------+ + + Lipid Panel (06/24/2017 7:49 AM PDT) + +---------+ + + + | Component | Value | Ref Range | Performed | Pathologist | | | | | At | Signature | + +---------+ + + + | Cholesterol | 258 | mg/dL | EXTERNAL | | | | | | LAB | | + +---------+ + + + | Triglycerid | 196 (A) | 30 - 150 mg/dL | EXTERNAL | | | es | | | LAB | | + +---------+ + + + | HDL | 54.4 | mg/dl | EXTERNAL | | | | | | LAB | | + +---------+ + + + | LDL, | 164 | mg/dL | EXTERNAL | | | Calculated | | | LAB | | + +---------+ + + + | LDl/HDL | | | EXTERNAL | | | Ratio | | | LAB | | + +---------+ + + + | Chol/HDL | 4.7 | | EXTERNAL | | | Ratio | | | LAB | | + +---------+ + + + | VLDL | 39 | 4 - 40 mg/dL | EXTERNAL | | | | | | LAB | | + +---------+ + + + | Non HDL | 204 | | EXTERNAL | | | Chol. | | | LAB | | | (LDL+VLDL) | | | | | + +---------+ + + + + + | Specimen | + + | Blood specimen | | (specimen) | + + + +---------+ + + | Performing | Address | City/State/Zipcode | Phone Number | | Organization | | | | + +---------+ + + | EXTERNAL LAB | | | | + +---------+ + + documented in this encounter Visit Diagnoses Not on filedocumented in this encounter"
--- OUTSIDE RECORDS SUMMARY | ~2019-11-30 | XMS | Clinical Summary ---
Demographics + + + | Address | [address] | | | [place] [address] | + + + | Home Phone | | + + + | Preferred Language | Unknown | + + + | Marital Status | Single | + + + | Nondenominational Affiliation | Unknown | + + + | Race | White | + + + | Ethnic Group | Not or | + + + Author + + + | Author | [facility] | | | and [place] | + + + | Organization | [facility] | | [...] Team Providers + +------+ + | Care Automatic Driller And Reamer Name | Role | Phone | + [...] + + Plan of Treatment + + + + + | Health Maintenance | Due Date | Last | Comments | | | | Done | | + + + + + | Hepatitis C | | | | | Screening | 9 | | | + + + + + | Medication | | | | | Management | 9 | | | + + + + + | Vaccine: | | | | | Pneumococcal 19-64 | 5 | | | | (1 of 1 - PPSV23) | | | | + + + + + | Vaccine: | | | | | Dtap/Tdap/Td (1 - | 8 | | | | Tdap) | | | | + + + + + | Cervical Cancer | | | | | Screening (Pap) | 9 | | | + + + + + | Colorectal Cancer | | | | | Screening | 9 | | | | (Colonoscopy) | | | | + + + + + | Vaccine: Zoster (1 | | | | | of 2) | 9 | | | + + + + + | Breast Cancer | | | | | Screening | 4 | | | + + + + + | Med Mgmt: Cr | | 05/06/19 | | | | 9 | 18, | | | | | 04/18/19 | | | | | 18, | | | | | 10/11/19 | | | | | 17, | | | | | Addition | | | | | al | | | | | history | | | | | exists | | + + + + + | Med Mgmt: K | | 05/06/19 | | | | 9 | 18, | | | | | 04/18/19 | | | | | 18, | | | | | 10/11/19 | | | | | 17, | | | | | Addition | | | | | al | | | | | history | | | | | exists | | + + + + + | Med Mgmt: Na | | 05/06/19 | | | | 9 | 18, | | | | | 04/18/19 | | | | | 18, | | | | | 10/11/19 | | | | | 17, | | | | | Addition | | | | | al | | | | | history | | | | | exists | | + + + + + | Med Mgmt: eGFR | | 05/06/19 | | | | 9 | 18, | | | | | 04/18/19 | | | | | 18, | | | | | 10/11/19 | | | | | 17, | | | | | Addition | | | | | al | | | | | history | | | | | exists | | + + + + + | Med Mgmt: TSH | | 05/17/19 | | | | 9 | 18, | | | | | 09/10/19 | | | | | 17 | | + + + + + | Med Mgmt: Vit D | | 06/25/19 | | | | 9 | 18 | | + + + + + | Vaccine: Influenza | | | | | (#1) | 0 | | | + + + + + Results Not on filefrom Last 3 Months
--- OUTSIDE RECORDS SUMMARY | ~2019-11-30 | XMS | Encounter Summary ---
Demographics + + + | Address | [address] | | | [place] [address] | + + + | Home Phone | | + + + | Preferred Language | Unknown | + + + | Marital Status | Single | + + + | Mu-Ism Affiliation | Unknown | + + + | Race | White | + + + | Ethnic Group | Not or | + + + Author + + + | Author | [facility] | | | and [place] | + + + | Organization | [facility] | | [...] Team Providers + +------+ + | Care Formula Room Worker Name | Role | Phone | + +------+ + | Gomez Cabrales | PCP | | + +------+ + Encounter Details +--------+ + + + + | Date | Type | Department | Care Team | Description | +--------+ + + + + | 06/08/ | Orders Only | [facility] | Maritza Reeves, | | | 2019 | | NEUROLOGY [address] | [address] | | | | | [address] | [address] | | | | | [place], [place] | [place] [address] | | | | | [address] | [phone] | | | | | [phone] | | | +--------+ + + + [...] Not on filedocumented as of this encounter Visit Diagnoses Not on filedocumented in this encounter"
--- OUTSIDE RECORDS SUMMARY | ~2019-11-30 | XMS | Encounter Summary ---
Demographics + + + | Address | [address] | | | [place] [address] | + + + | Home Phone [...] Author + + + | Author | [facility] | | | and [place] | + + + | Organization | [facility] | | | [...] Team Providers + +------+ + | Care Senior Salesforce Developer Name | Role | Phone | + +------+ + | Gomez Cabrales | PCP | | + +------+ + Encounter Details +--------+ + + + + | Date | Type | Department | Care Team | Description | +--------+ + + + + | 12/01/ | Orders Only | [facility] | Conversion | | | 2018 | | CONVERSION [address]P [address] | Transaction, | | | | | [address] | Provider Unknown | | | | | [place] | [phone] | | | | | [address] | | | | | | [phone] | | | +--------+ + + + [...]
--- OUTSIDE RECORDS SUMMARY | ~2019-11-30 | XMS | Encounter Summary ---
Demographics + + + | Address | [address] | | | [place] [address] | + + + | Home Phone | | + + + | Preferred Language | Unknown | + + + | Marital Status | Single | + + + | Jain Affiliation | Unknown | + + + | Race | White | + + + | Ethnic Group | Not or | + + + Author + + + | Author | [facility] | | | and [place] | + + + | Organization | [facility] | | | [...] Team Providers + +------+ + | Care Superintendent Tests Name | Role | Phone | + +------+ + | Gomez Cabrales | PCP | | + +------+ + Encounter Details +--------+ + + + + | Date | Type | Department | Care Team | Description | +--------+ + + + + | 12/30/ | Orders Only | [facility] | Conversion | | | 2017 | | CONVERSION [address] | Transaction, | | | | | [address] | Provider Unknown | | | | | [place] | [phone] | | | | | [phone] | | | | | | | | | +--------+ + + + [...]
--- OUTSIDE RECORDS SUMMARY | ~2019-11-30 | XMS | Encounter Summary ---
Demographics + + + | Address | [address] | | | [place] [address] | + + + | Home Phone | | + + + | Preferred Language | Unknown | + + + | Marital Status | Single | + + + | Anabaptist Affiliation | Unknown | + + + | Race | White | + + + | Ethnic Group | Not or | + + + Author + + + | Author | [facility] | | | and [place] | + + + | Organization | [facility] | | [...] Team Providers + +------+ + | Care Citrus Picker Name | Role | Phone | + +------+ + | Gomez Cabrales | PCP | | + +------+ + Encounter Details +--------+ + + + + | Date | Type | Department | Care Team | Description | +--------+ + + + + | 04/18/ | Orders Only | [facility] | Conversion | | | 2017 | | [facility] [place] | Transaction, | | | | | [address] | Provider Unknown | | | | | [address] [place] [place] | | | | | | [phone] | (Fax) | | | | | [phone] | | | +--------+ + + + [...] + | BASIC METABOLIC | Routin | 04/18/2017 | | Results for this | | PANEL | e | 9:16 AM | | procedure are in the | | | | PST | | results section. | + +--------+ + + + documented in this encounter Results Basic Metabolic Panel (04/18/2017 9:16 AM PST) + + + + + + | Component | Value | Ref Range | Performed | Pathologist | | | | | At | Signature | + + + + + + | Glucose, | 83 | 70 - 100 mg/dL | EXTERNAL | | | Fasting | | | LAB | | + + + + + + | BUN | 8 | 6 - 23 mg/dL | EXTERNAL | | | | | | LAB | | + + + + + + | Creatinine | 0.61 (A) | 0.7 - 1.33 | EXTERNAL | | | | | mg/dL | LAB | | + + + + + + | BUN/Creatin | 13.1 | 6.0 - 28.6 | EXTERNAL | | | ine Ratio | | | LAB | | + + + + + + | Calcium | 9.2 | 8.4 - 10.2 | EXTERNAL | | | | | mg/dL | LAB | | + + + + + + | Na | 137 | 132 - 143 | EXTERNAL | | | | | mmol/L | LAB | | + + + + + + | K | 4.4 | 3.6 - 5.1 | EXTERNAL | | | | | mmol/L | LAB | | + + + + + + | Cl | 106 | 95 - 112 mmol/L | EXTERNAL | | | | | | LAB | | + + + + + + | CO2 | 27 | 19 - 31 mmol/L | EXTERNAL | | | | | | LAB | | + + + + + + | Anion Gap | 8.4 | 7 - 21 mmol/L | EXTERNAL | | | | | | LAB | | + + + + + + | Estimated | 101 | mg/dL | EXTERNAL | | | [...]
--- OUTSIDE RECORDS SUMMARY | ~2019-11-30 | XMS | Encounter Summary ---
Demographics + + + | Address | [address] | | | [place] [address] | + + + | Home Phone | | + + + | Preferred Language | Unknown | + + + | Marital Status | Single | + + + | Druze Affiliation | Unknown | + + + | Race | White | + + + | Ethnic Group | Not or | + + + Author + + + | Author | [facility] | | | and [place] | + + + | Organization | [facility] | | | [...] Team Providers + +------+ + | Care Sealer Dry Cell Name | Role | Phone | + +------+ + | Gomez Cabrales | PCP | | + +------+ + Encounter Details +--------+ + + + + | Date | Type | Department | Care Team | Description | +--------+ + + + + | 05/16/ | Orders Only | [facility] | Norris Calzada MD | | | 2018 | | [facility] [place] | [address] | | | | | [address] [place] | [address] [place], [place] | | | | | [address] [place] [place] | [id number] | | | | | [address] | | | | | | [phone] | | | +--------+ + + + [...]
--- OUTSIDE RECORDS SUMMARY | ~2019-11-30 | XMS | Encounter Summary ---
Demographics + + + | Address | [address] | | | [place] [address] | + + + | Home Phone | | + + + | Preferred Language | Unknown | + + + | Marital Status | Single | + + + | Yarsanism Affiliation | Unknown | + + + | Race | White | + + + | Ethnic Group | Not or | + + + Author + + + | Author | [facility] | | | and [place] | + + + | Organization | [facility] | | | [...] Team Providers + +------+ + | Care Digital Asset Specialist Name | Role | Phone | + +------+ + | Gomez Cabrales | PCP | | + +------+ + Encounter Details +--------+ + + + + | Date | Type | Department | Care Team | Description | +--------+ + + + + | 05/05/ | Orders Only | [facility] | Norris Calzada MD | | | 2018 | | [facility] [place] | [address] | | | | | [address] [place] | [address] [place], [place] | | | | | [address] [place] | [id number] | | | | | [address] | | | | | | [phone] | | | +--------+ + + + [...] + + + + + + | Clarity, | Clear | | EXTERNAL | | | Urine [...]
--- OUTSIDE RECORDS SUMMARY | ~2019-11-30 | XMS | Encounter Summary ---
Demographics + + + | Address | [address] | | | [place] [address] | + + + | Home Phone | | + + + | Preferred Language | Unknown | + + + | Marital Status | Single | + + + | Faith Affiliation | Unknown | + + + | Race | White | + + + | Ethnic Group | Not or | + + + Author + + + | Author | [facility] | | | and [place] | + + + | Organization | [facility] | | | [...] Team Providers + +------+ + | Care Auto Motor Mechanic Name | Role | Phone | + +------+ + | Gomez Cabrales | PCP | | + +------+ + Encounter Details +--------+ + + + + | Date | Type | Department | Care Team | Description | +--------+ + + + + | 10/10/ | Orders Only | [facility] | Conversion | | | 2016 | | [facility] [place] | Transaction, | | | | | [address] | Provider Unknown | | | | | [address] [place] | | | | | | [phone] | (Fax) | | | | | [phone] | | | +--------+ + + + [...] + + + + + + | Non- | 3.66 (A) | 3.8 - 5.1 10 | EXTERNAL | | | Red Blood | | | LAB | | | Cells | | | | | | Counted | | | [...]
--- OUTSIDE RECORDS SUMMARY | ~2019-11-30 | XMS | Encounter Summary ---
Demographics + + + | Address | [address] | | | [place] [address] | + + + | Home Phone | | + + + | Preferred Language | Unknown | + + + | Marital Status | Single | + + + | Denominational Affiliation | Unknown | + + + | Race | White | + + + | Ethnic Group | Not or | + + + Author + + + | Author | [facility] | | | and [place] | + + + | Organization | [facility] | | | [...] Team Providers + +------+ + | Care Metal Bonding Press Operator Name | Role | Phone | [...] Provider Unknown | | | | | [place] | [phone] | | | | | [phone] | | | | | | [phone] | | | +--------+ + + + [...]
--- OUTSIDE RECORDS SUMMARY | 2019-11-30 15:42 | XMS ---
PreManage Notification: LORA LUNA Security Digital Pre Press Operator Events No recent Security Events currently on file CRITERIA MET - Group Notification - PDMP CARE PROVIDERS ALISHA AGUIRRE Physician Field Control Inspector 10/20/2017-Current PHONE: [phone] Jaret has no Care Guidelines for this patient. ETania VISIT COUNT (12 MO.) 2 [facility] Jessica TOTAL 2 NOTE: Visits indicate total known visits. 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
--- NOTE | 2019-11-30 18:57 | EKG ---
[facility] [address] [facility] [place] [address] Signed Normal sinus rhythm Possible Left atrial enlargement Left axis deviation Incomplete right bundle branch block Septal infarct , age undetermined Abnormal ECG When compared with ECG of 29-AUG-2019 19:55, Nonspecific T wave abnormality now evident in Inferior leads Nonspecific T wave abnormality has replaced inverted T waves in Lateral leads Confirmed by FAHAD PATTERSON MD ([id number]) on 11/30/2019 6:57:08 PM Electronically Signed By: FAHAD PATTERSON MD 11/30/19 1857 PATIENT NAME: LORA LUNA Electrocardiogram DATE OF : 58 PHYSICIAN: FAHAD PATTERSON MD REPORT #: [id number] REPORT IS CONFIDENTIAL AND NOT TO BE RELEASED WITHOUT AUTHORIZATION
== END ==
LOC: ED 15:40
DX: R40.4 Transient alteration of awareness (principal); I16.9 Hypertensive crisis, unspecified; I10 Essential (primary) hypertension; E03.9 Hypothyroidism, unspecified; G43.909 Migraine, unspecified, not intractable, without status migrainosus; Z88.8 Allergy status to other drugs, medicaments and biological substances; Z88.2 Allergy status to sulfonamides; Z88.5 Allergy status to narcotic agent; Z79.899 Other long term (current) drug therapy
CPT/HCPCS: 31500; 36600; 43752; 51702; 70450; 71045; 72125; 80053; 80176; 81001; 82803; 84443; 84484; 85025; 93005; 93010; 94002; 99285-25; G0480; J0330; J2704

== ENCOUNTER 2021-03-06 14:21 | Emergency (ER) | payer OTHER ==
[~2021-03-06] VITALS: Ht 157.5 cm; Wt 95.2 kg
--- OUTSIDE RECORDS SUMMARY | 2021-03-06 14:28 | XMS ---
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 ETania VISIT COUNT (12 MO.) 1 RANDOLPH Jessica TOTAL 1 NOTE: Visits indicate total known visits. ED/UCC VISIT TRACKING (12 MO.) 03/06/2021 14:23 [facility] [place] TYPE: Emergency COMPLAINT: - DIZZY, LIGHT HEADED INPATIENT VISIT TRACKING (12 MO.) No inpatient visits to display in this time frame [email or web address]
--- NOTE | 2021-03-06 22:02 | EKG ---
[facility] [address] [facility] [place] [address] Signed Sinus bradycardia Left axis deviation Minimal voltage criteria for LVH, may be normal variant ( Parish product ) Nonspecific T wave abnormality Abnormal ECG When compared with ECG of 30-NOV-2019 17:13, Nonspecific T wave abnormality now evident in Anterior leads Confirmed by MOOSE VIRGEN DO ([id number]) on 03/06/2021 10:01:48 PM Electronically Signed By: MOOSE VIRGEN DO 03/06/212201 PATIENT NAME: LORA LUNA Electrocardiogram DATE OF : 58 PHYSICIAN: MOOSE VIRGEN DO REPORT #: [id number] REPORT IS CONFIDENTIAL AND NOT TO BE RELEASED WITHOUT AUTHORIZATION
== END 2021-03-06 18:12 | disposition home or self-care (01) ==
LOC: ED 14:21
DX: E87.1 Hypo-osmolality and hyponatremia (principal); E87.6 Hypokalemia; I10 Essential (primary) hypertension; E03.9 Hypothyroidism, unspecified; G43.909 Migraine, unspecified, not intractable, without status migrainosus; Z88.6 Allergy status to analgesic agent; Z88.5 Allergy status to narcotic agent; Z88.8 Allergy status to other drugs, medicaments and biological substances; Z88.2 Allergy status to sulfonamides; Z79.899 Other long term (current) drug therapy
CPT/HCPCS: 74177; 80053; 81001; 83735; 84484; 85025; 93005; 93010; 99284-25; Q9967